=== PATIENT | female | born 1985 | race Caucasian/White ===

== ENCOUNTER 2025-08-16 08:27 | Outpatient (REF) | payer OTHER, SELFPAY ==
--- OUTSIDE RECORDS SUMMARY | 2024-07-14 07:46 | XMS_ITS | Encounter Summary ---
Author Organization [facility] Address [address] [place] [address] Care Team Providers Care Sap Treasury Consultant Name Role Phone Cosme Love MD Primary Care Provider [phone] Encounter Details Date Type Department Care Team (Late st Contact Info) Description 07/14/2024 8:46 AM EDT Hospital Encounter TH HISTORIC ENCOUNTERS EASTERN CONVERSION ONLY Social History Tobacco Use Types Packs/Day Years Used Date Smoking Tobacco: Never Alcohol Use Standard Drinks/Week Comments Not Currently 0 (1 standard drink = 0.6 oz pur e alcohol) Very rare Comments No Sex and Gender Information Value Date Recorded Sex Assigned at Female 10/20/2024 9:19 AM EST Legal Sex Female 12:31 PM EST Gender Identity Female 10/20/2024 9:19 AM EST Sexual Orientation Straight 02/02/2025 10 :04 AM EDT documented as of this encounter Last Filed Vital Signs Vital Sign Reading Time Taken Comments Blood Pressure - - Pulse - - Temperature - - Respiratory Rate - - Oxygen Saturation - - Inhaled Oxygen Concentration - - Weight 50.6 kg (111 lb 8.8 oz) 07/07/2024 9:01 A M EDT Height 160 cm (5' 3 ) 07/07/2024 9:01 AM EDT Body Mass Index 19.76 07/07/2024 9:01 AM EDT documented in this encounter Progress Notes * Historical, Notes Results - 07/14/2024 9:00 AM EDT Patient arrives ambulatory for port draw to recheck LFT's. Patient's port accessed without difficulty. + blood return. Labs drawn and sent to lab. Patient's port flushed and deaccessed per protocol. Patient has her next appointments in place. Patient stable upon discharge. * Historical, Notes Results - 07/14/2024 9:00 AM EDT Patient's labs reviewed with Dr. Forrester, LFT's still elevated but slightly improved. Per Dr. Forrester recheck again in 2 weeks on treatment day, patient to avoid tylenol, flu medications, and antibiotics. Patient called and updated with results and recommendation from Dr. Forrester. Patient verbalized understanding. documented in this encounter Plan of Treatment Upcoming Encounters Date Type Department Care Team (Late st Contact Info) Description 08/22/2025 9:30 AM EST Appointment [facility] Infusion Center [address] [place] [phone] 12/19/2025 3:00 PM EDT [facility] [address] [place] [address] Cosme Love MD [address] [place] [address] documented as of this encounter Visit Diagnoses Not on filedocumented in this encounter Care Teams Sap Treasury Consultant Relationship Specialty Start Date End Date Cosme Love MD [address] [place] [address] PCP - General Internal Medicine 06/03/22 documented as of this encounter
--- OUTSIDE RECORDS SUMMARY | 2024-07-27 23:00 | XMS_ITS | Encounter Summary ---
Author Organization [facility] Address [address] [place] [address] Care Team Providers Care Production Drilling Machine Operator Name Role Phone Comse Love MD Primary Care Provider [phone] Encounter Details Date Type Department Care Team (Late Contact Info) Description 07/28/2024 Hospital Encounter TH HISTORIC ENCOUNTERS EASTERN CONVERSION [...] - Inhaled Oxygen Concentration - - Weight 52.1 kg (114 lb 12.8 oz) 07/28/2024 9:58 AM EDT Height 160 cm (5' 3 ) 07/28/2024 9:12 AM EDT Body Mass Index 20.34 07/28/2024 9:12 AM EDT documented in this encounter Plan of Treatment Upcoming Encounters Date Type Department Care Team (Late Contact Info) Description 08/22/2025 9:30 AM EST Appointment [facility] [address] [place] [phone] 12/19/2025 3:00 PM EDT Office Visit Internal Medicine - [facility] [address] [facility] [place] [address] Cosme Love MD [address] [facility] [place] [address] documented as of this encounter Visit Diagnoses Not on filedocumented in this encounter Care Teams Production Drilling Machine Operator Relationship Specialty Start Date End Date Cosme Love MD [address] [facility] [place] [address] PCP - General Internal Medicine 06/03/22 documented as of this encounter
--- OUTSIDE RECORDS SUMMARY | 2024-07-28 08:54 | XMS_ITS | Encounter Summary ---
Author Organization [facility] Address [address] [place] [address] Care Team Providers Care Transition Advisor Name Role Phone Cosme Love MD Primary Care Provider [phone] Encounter Details Date Type Department Care Team (Late st Contact Info) Description 07/28/2024 9:54 AM EDT Hospital Encounter TH HISTORIC ENCOUNTERS [...] 52.1 kg (114 lb 12.8 oz) 07/28/2024 9:12 AM EDT Height 160 cm (5' 3 ) 07/28/2024 9:12 AM EDT Body Mass Index 20.34 07/28/2024 9:12 AM EDT documented in this encounter Progress Notes * Historical, Notes Results - 07/28/2024 9:30 AM EDT Images from the original note were not included. Progress Notes by Khloe Hancock RN at 07/28/2024 9:30 AM Author: Khloe Hancock RN Service: -- Author Type: Registered Nurse Filed: 07/28/2024 5:33 PM Encounter Date: 07/28/2024 Status: Signed Emergency Medicine Physician: Khloe Hancock RN (Registered Nurse) Pt arrives today for D1C5 treatment. Pt reports feeling well overall. Added on labs resulted and within normal range. Medications, allergies, labs, and assessment reviewed. Medication released to pharmacy. Order received to recheck cmp - no need to wait for results per dr cali 1050 Traz[address] infusing. Pt tolerating well. Pt coloring. Call perez in reach. 1125 infusion complete. Pt tolerated well. Appointments in place for next treatment. Stable at discharge. documented in this encounter Plan of Treatment Upcoming Encounters Date Type Department Care Team (Late st Contact Info) Description 08/22/2025 9:30 AM EST Appointment [facility] Infusion Center [address] [address] 12/19/2025 3:00 PM EDT [facility] [address] [place] [address] Cosme Love MD [address] [place] [address] documented as of this encounter Visit Diagnoses Not on filedocumented in this encounter Care Teams Transition Advisor Relationship Specialty Start Date End Date Cosme Love MD [address] [place] [address] PCP - General Internal Medicine 06/03/22 documented as of this encounter
--- NOTE | ~2025-08-16 | XR_ITS ---
EXAMINATION: XR KNEE, RIGHT CLINICAL INFORMATION: M25.569 - Pain in unspecified knee COMPARISON: None available. TECHNIQUE: AP bilateral knees one view. Right knee 2 views. FINDINGS: Right knee: No visible acute fracture or dislocation. No suspicious bony lesion. No significant joint space narrowing. Abnormal soft tissue calcification. Left knee: Single frontal radiograph. No acute fracture. There is calcification/ossification in the soft tissues lateral to the femoral diaphysis, larger focus measuring 3.8 cm craniocaudal, incompletely evaluated. This is of uncertain etiology, differential consideration includes dystrophic/heterotopic ossification versus other etiologies.. XR/XR knee RT 3V IMPRESSION: Right knee: No acute osseous findings Left knee: Single frontal radiograph. Calcifications/ossifications lateral to the femoral diaphysis, indeterminate. Clinically correlate. Correlate with prior imaging. Dedicated radiographs for further evaluation as clinically indicated. Electronically signed by: Teodoro Seo MD 08/16/2025 04:34 PM EST
--- OUTSIDE RECORDS SUMMARY | 2025-08-17 08:57 | XMS_ITS | Clinical Summary ---
Author Organization [facility] Address [address] [facility] [address] [place] [address] Phone Care Team Providers Care Manager Balance Name Role Phone Self-Referred, Patient Unavailable Unavailab Cosme Moreno MD Primary Care Provider [phone] Janette Abdalla MD, MPH Unavailable [phone] Zoe Putnam Unavailable [phone] Dariana Hopper [facility] Unavailable [phone] Aura Hsu RN Unavailable [email or web address] Medications loperamide (IMODIUM) 2 mg capsule [...] Description 07/31/2025 Orders Only Infusion Therapy Services [facility] at [address] [address] Janette Abdalla MD, MPH Malignant neoplasm of overlapping sites of left breast in female, estrogen receptor positive (Primary Dx) 07/27/2025 2:00 PM EDT Infusion Infusion Therapy Services [facility] at [address] [address] Janette Abdalla MD, MPH Aura Hsu RN Malignant neoplasm of overlapping sites of left breast in female, estrogen receptor positive (Primary Dx) 07/27/2025 1:00 PM EDT Office Visit [facility], [facility], [facility] at [address] [phone] Nini Herrera CNP Schlam Camhi, Ilana M, MD, MPH Examination prior to chemotherapy (Primary Dx); Malignant neoplasm of female breast, unspecified estrogen receptor status, unspecified laterality, unspecified site of breast 07/27/2025 9:23 AM EDT - 07/27/2025 11:59 PM EDT Hospital Encounter [facility] [address] [facility] [address] [place] [address] Nini Herrera CNP Discharge Disposition: Home or Self Care 07/27/2025 Documentation [facility], [facility] at [address] [address] Maranda Torres RN 07/12/2025 Orders Only [facility], [facility], [facility] at [address] [address] Nini Herrera CNP Examination prior to chemotherapy (Primary Dx) 07/12/2025 Orders Only [facility], [facility], [address] [address] Nini Herrera CNP 07/10/2025 Refill [facility], [facility], [facility] Cancer [address], [address] [place] [address] Vijaya Dominique DNP Med Change Request 07/09/2025 Orders Only [facility], [facility], [address] [address] Nini Herrera CNP Examination prior to chemotherapy (Primary Dx) 07/06/2025 12:30 PM EDT Infusion Infusion Therapy Services [facility], [facility] at [address] [address] Janette Abdalla MD, MPH Nivia Adames, RN Malignant neoplasm of overlapping sites of left breast in female, estrogen receptor positive (Primary Dx) 07/06/2025 11:30 AM EDT Office Visit [facility], [facility], [facility] at [address] [address] Nini Herrera, MARLEE Malignant neoplasm of female breast, unspecified estrogen receptor status, unspecified laterality, unspecified site of breast (Primary Dx) 07/05/2025 Orders Only [facility], [facility], [facility] [address] [facility], [address] [place] [address] Janette Abdalla MD, MPH Malignant neoplasm of female breast, unspecified estrogen receptor status, unspecified laterality, unspecified site of breast (Primary Dx) 06/26/2025 Orders Only [facility], [facility], [facility] [address] [facility], [address] [place] [address] Janette Abdalla MD, MPH Malignant neoplasm of overlapping sites of left breast in female, estrogen receptor positive (Primary Dx); Examination prior to chemotherapy 06/25/2025 Social Work Social Work Department, [facility] at [address] [address] Dariana Hopper, SENIOR QUALITY METHODS SPECIALIST 06/25/2025 Orders Only [facility], [facility], [facility] [address] [facility], [address] [place] [address] Mary Villagran, DEWAYNE Malignant neoplasm of overlapping sites of left breast in female, estrogen receptor positive (Primary Dx) 06/21/2025 Orders Only [place] [facility], [facility], [facility] at [address] [address] Janette Abdalla MD, MPH Malignant neoplasm of overlapping sites of left breast in female, estrogen receptor positive (Primary Dx) 06/21/2025 Telephone [facility], [facility], [address], [address] [place] [address] Janette Abdalla MD, MPH 06/21/2025 Telephone [facility], [facility] Women[facility]ancers, [facility] [address] [facility], [address] [place] [address] Olivia Alcaraz, RN Symptom Management 06/18/2025 Orders Only [facility], [facility] Women[facility] Cancers, [facility] [address] [facility], [address] [place] [address] Vijaya Dominique DNP 06/18/2025 Telephone [facility], [facility], [address], [address] [place] [address] Alyce Sutherland RN 06/15/2025 12:00 PM EDT Infusion Infusion Therapy Services [facility] at [address] [address] Janette Abdalla MD, MPH Aura Hsu RN Malignant neoplasm of overlapping sites of left breast in female, estrogen receptor positive (Primary Dx) 06/15/2025 11:00 AM EDT Office Visit [facility], [facility], [facility] at [address] [address] Janette Abdalla MD, MPH Nini Herrera, BEAM MACHINE OPERATOR Examination prior to chemotherapy (Primary Dx); Malignant neoplasm of overlapping sites of left breast in female, estrogen receptor positive 06/15/2025 Procedure Pass [facility] [address] [facility] [address] [place] [address] 06/09/2025 Orders Only [facility], [facility], [facility] [address] [facility], 9th [place] [address] Janette Abdalla MD, MPH Malignant neoplasm of overlapping sites of left breast in female, estrogen receptor positive (Primary Dx) 06/07/2025 Documentation [facility], [facility], [facility] [address] [facility], [address] [place] [address] [address] A[address] 06/07/2025 Orders Only [facility], [facility], [facility] [place] [address] 4th [place] [address] Nini Herrera CNP 06/07/2025 Telephone [facility], [facility], [facility] [address] [facility], [address] [place] [address] Rose Vines RN Chemo Teaching 06/05/2025 1:00 PM EDT Office Visit [facility], [facility], [facility] [address] [facility], 9th [place] [address] Janette Abdalla MD, MPH Malignant neoplasm of overlapping sites of left breast in female, estrogen receptor positive (Primary Dx) 06/05/2025 Documentation [facility], [facility], [facility] [address] [facility], [address]th [place] [address] Janette Abdalla MD, MPH 06/05/2025 Telephone [facility], [facility], [facility] [address] [facility], [address] [place] [address] Alyce Sutherland RN 06/04/2025 Documentation [facility], [facility], [facility] [address] [facility], [address] [place] [address] [address] Avalos 05/28/2025 Ancillary Orders DF IMG OUTSIDE IMG [address] [place] [address] Janette Abdalla MD, MPH 05/28/2025 Ancillary Orders DF IMG OUTSIDE IMG [address] [place] [address] Janette Abdalla MD, MPH 05/28/2025 Ancillary Orders DF IMG OUTSIDE IMG [address] [place] [address] Janette Abdalla MD, MPH 05/28/2025 Ancillary Orders DF IMG OUTSIDE IMG [address] [place] [address] Janette Abdalla MD, MPH 05/28/2025 Ancillary Orders DF IMG OUTSIDE IMG [address] [place] [address] Janette Abdalla MD, MPH 05/28/2025 Ancillary Orders [facility] IMG OUTSIDE IMG [address] [place] [address] Janette Abdlala MD, MPH 05/28/2025 Ancillary Orders DF IMG OUTSIDE IMG [address] [place] [address] Janette Abdalla MD, MPH 05/28/2025 Ancillary Orders DF IMG OUTSIDE IMG [address] [place] [address] Janette Abdalla MD, MPH 05/28/2025 Ancillary Orders DF IMG OUTSIDE IMG [address] [place] [address] Janette Abdalla MD, MPH 05/28/2025 Ancillary Orders DF IMG OUTSIDE IMG [address] [place] [address] Janette Abdalla MD, MPH 05/28/2025 Ancillary Orders DF IMG OUTSIDE IMG [address] [place] [address] Janette Abdalla MD, MPH 05/28/2025 Ancillary Orders DF IMG OUTSIDE IMG [address] [place] [address] Janette Abdalla MD, MPH 05/28/2025 Ancillary Orders DF IMG OUTSIDE IMG [address] [place] [address] Janette Abdalla MD, MPH 05/28/2025 Ancillary Orders DF IMG OUTSIDE IMG [address] [place] [address] Janette Abdalla MD, MPH 05/28/2025 Ancillary Orders DF IMG OUTSIDE IMG [address] [place] [address] Janette Abdalla MD, MPH 05/28/2025 Ancillary Orders DF IMG OUTSIDE IMG [address] [place] [address] Janette Abdalla MD, MPH 05/28/2025 Ancillary Orders DF IMG OUTSIDE IMG [address] [place] [address] Janette Abdalla MD, MPH 05/28/2025 Ancillary Orders DF IMG OUTSIDE IMG [address] [place] [address] Janette Abdalla MD, MPH 05/28/2025 Ancillary Orders DF IMG OUTSIDE IMG [address] [place] [address] Janette Abdalla MD, MPH 05/28/2025 Ancillary Orders DF IMG OUTSIDE IMG [address] [place] [address] Janette Abdalla MD, MPH 05/25/2025 9:22 AM EDT - 05/25/2025 11:59 PM EDT Hospital Encounter [facility], [facility] [address] [place] [address] Discharge Disposition: Home or Self Care 05/22/2025 Ancillary Procedure DF IMG OUTSIDE IMG [address] [place] [address] Janette Abdalla MD, MPH 05/22/2025 Orders Only [facility], [facility] [place] [facility], [facility] [place] [address] [facility], [address] [place] [address] Jeanne Romero [place] Malignant neoplasm of female [...] high school, GED, job training, learning the Malay language, technical skills, or developing parenting skills)? [...] 10:10 AM EST Blood Draw Laboratory Services, [facility] at [address] [address] Janette Abdalla MD, MPH [address] [place] [address] [email or web address] 08/17/2025 11:00 AM EST Office Visit [facility], [facility] [place] [facility], [facility] at [address] [address] Nini Herrera CNP [address] [place] [address] [email or web address] 08/17/2025 12:00 PM EST Infusion Infusion Therapy Services South, [facility] at [address] [address] Janette Abdalla MD, MPH [address] [place] [address] [email or web address] Aura Hsu, RN [address] [place] [address] [email or web address] 09/05/2025 10:10 AM EST Blood Draw Laboratory Services, [address] [place] [address] Janette Abdalla MD, MPH [address] [place] [address] [email or web address] 09/05/2025 11:00 AM EST Office Visit [facility], [facility], [address], [address] [place] [address] Janette Abdalla MD, MPH [address] [place] [address] [email or web address] 09/05/2025 1:00 PM EST Infusion Infusion Therapy Services [address], [address] [place] [address] Janette Abdalla MD, MPH [address] [place] [address] [email or web address] Marianne Smith RN [address] [place] [address] [email or web address] 09/07/2025 11:00 AM EST Infusion Infusion Therapy Services [facility] [place] [address] [address] Janette Abdalla MD, MPH [address] [place] [address] [email or web address] Aura Hsu RN [address] [place] [address] [email or web address] Health Maintenance Due Date Last Done [...] on patient's age to complete this topic IPV VACCINES Aged Out No longer eligi ble [...] of3 resultswithin the time period is included. [facility] SODIUM 137 136 - 145 mmol/L [facility] POTASSIUM 4.6 3.4 - 5.1 mmol/L [facility] CHLORIDE 104 98 - 107 mmol/L [facility] CO2 23 22 - 31 mmol/L [facility] BUN 10 6 - 23 mg/dL [facility] CREATININE 0.81 0.50 - 1.20 mg/dL [facility] GLUCOSE 121(H) 70 - 100 mg/dL [facility] ALBUMIN 3.9 3.5 - 5.2 g/dL [facility] TOTAL PROTEIN 6.9 6.4 - 8.3 g/dL [facility] CALCIUM 8.9 8.8 - 10.7 mg/dL [facility] ALKALINE PHOSPHATASE 110(H) 35 - 104 U/L [facility] TOTAL BILIRUBIN 0.5 0.2 - 1.2 mg/dL [facility] AST 16 <33 U/L [facility] ALT 13 <34 U/L [facility] GLOBULIN 3.0 2.3 - 4.2 g/dL [facility] EGFR 93 >59 mL/min/1.7 3m2 [facility] Comment:Estimated glomerular filtration rate calculated using the CKD-EPI refit equation. ANION GAP 10 7 - 17 mmol/L [facility] Blood 07/27/2025 11:4 1 AM EDT 07/27/2025 11:42 AM EDT us Janette Ortiz MD, MPH LAB BLOOD BKR ORDER BERTRAM Final Result [facility] [address] [place] [address], [facility] * CA-15-3 (07/27/2025 11:41 AM EDT) Only the most recent of2 resultswithin the time period is included. CANCER AG 15-3 19 0 - 25 U/mL [facility] Blood 07/27/2025 11:4 1 AM EDT 07/27/2025 11:42 AM EDT us Janette Ortiz MD, MPH LAB BLOOD BKR ORDER BERTRAM Final Result [facility] [address] [place] [address], [facility] * (ABNORMAL) CBC and differential (07/27/2025 11:41 AM EDT) Only the most recent of3 resultswithin the time period is included. WBC 4.82 4.00 - 10.00 K/uL [facility] RBC 4.30 3.90 - 6.00 M/uL [facility] HGB 13.2 11.5 - 16.4 g/dL [facility] HCT 36.5 36.0 - 48.0 % [facility] PLT 226 150 - 450 K/uL [facility] MCV 84.9 80.0 - 100.0 fL [facility] MCH 30.7 27.0 - 32.0 pg [facility] MCHC 36.2(H) 32.0 - 36.0 g/dL [facility] RDW 14.1 11.5 - 14.5 % [facility] MPV 9.4 8.4 - 12.0 fL [facility] NRBC 0.00 0.00 /100 WBCs [facility] ABSOLUTE NRBC 0.00 0 K/uL [facility] DIFF METHOD Auto [facility] NEUTS 43.4(L) 48.0 - 76.0 % [facility] LYMPHS 46.3(H) 18.0 - 41.0 % [facility] MONOS 5.8 4.0 - 11.0 % [facility] EOS 3.3 0.0 - 5.0 % [facility] BASOS 1.0 0.00 - 1.50 % [facility] % IMMATURE GRANS 0.2 0.00 - 1.00 % [facility] ABSOLUTE NEUTS 2.09 1.92 - 7.60 K/uL [facility] ABSOLUTE LYMPHS 2.23 0.72 - 4.10 K/uL [facility] ABSOLUTE MONOS 0.28 0.16 - 1.10 K/uL [facility] ABSOLUTE EOS 0.16 0.00 - 0.50 K/uL [facility] ABSOLUTE BASOS 0.05 0.00 - 0.15 K/uL [facility] ABS IMMATURE GRANS 0.01 0.00 - 0.10 K/uL [facility] Blood 07/27/2025 11:4 1 AM EDT 07/27/2025 11:42 AM EDT Janette Ortiz MD, MPH LAB BLOOD BKR ORDER BERTRAM Final Result Performing Organization Address City/[facility] Co de Phone Number [facility] [address] * Carcinoembryonic antigen (CEA) (07/27/2025 11:41 AM EDT) Only the most recent of2 resultswithin the time period is included. CEA 1.3 0 - 3.7 ng/mL [facility] Comment: CEA REFERENCE RANGE: NON-SMOKERS: < 3.8 ng/mL SMOKERS: < 5.0 ng/mL Blood 07/27/2025 11:4 1 AM EDT 07/27/2025 11:42 AM EDT Janette Ortiz MD, MPH LAB BLOOD BKR ORDER BERTRAM Final Result Performing Organization Address City/[facility] Co de Phone Number [facility] [address] [place] [address], [facility] * CT CHEST (HIGH RESOLUTION) WITHOUT CONTRAST [...] provided indication for this examination in Epic: * Acute interstitial pneumonitis; on enhertu, rule [...] prone images were obtained [facility]. COMPARISON: CT CHEST OUTSIDE [...] known primary malignancy and asmita metastasis. ATTESTATION: IWade, as teaching physician have reviewed theimages, if any, for this patient's exam, and if necessary, have edited thereport originally created by Duran Ramirez. Nini Herrera [facility] CT CHEST Final Result * Miscellaneous test (07/06/2025 10:19 AM EDT) [facility] Test Information TEST SENT TO [facility] 07/06/2025 [facility] MISCELLANEOUS TEST (RESULTS) TEST CANCELLED BY PROVIDER DR. MARCELLO AUSTIN ON 07/06/2025 [facility] Resulting Agency [facility] Blood 07/06/2025 10:1 9 AM EDT 07/06/2025 11:50 AM EDT Janette Ortiz MD, MPH LAB BLOOD BKR ORDER BERTRAM Final Result Performing Organization Address City/[facility] Co de Phone Number [address] * Ferritin (07/06/2025 10:19 AM EDT) FERRITIN 113 13 - 150 ug/L [facility] Blood 07/06/2025 10:1 9 AM EDT 07/06/2025 10:31 AM EDT Janette Ortiz MD, MPH LAB BLOOD BKR ORDER BERTRAM Final Result Performing Organization Address [facility] Co de Phone Number [address] * (ABNORMAL) Iron and iron binding capacity (07/06/2025 10:09 AM EDT) IRON 60 37 - 145 ug/dL [facility] IRON BINDING CAPACITY 183(L) 220 - 460 ug/dL [facility] TRANSFERRIN SATURAT. 33 14 - 50 % [facility] 07/06/2025 10:0 9 AM EDT 07/06/2025 10:32 AM EDT Janette Ortiz MD, MPH LAB BLOOD BKR ORDER BERTRAM Final Result Performing Organization Address [facility] Co de Phone Number [address] * MRI Brain Outside (No Interpretation) (05/22/2025 12:00 AM EDT) Other Narrative BESSY_RODRIGO - 05/28/2025 11:44 AM EDT This study is for PACS storage only and not for interpretation. Janette Ortiz MD, MPH IMG OUTSIDE IMAGING W/OUT INTERPRETATION Final Result Performing Organization Address City/[facility] Co de Phone Number [email or web address] * Mammogram Outside (No Interpretation) (12/01/2023 12:10 AM EST) Other Narrative TAD - 05/28/2025 11:59 AM EDT This study is for PACS storage only and not for interpretation. us Janette Ortiz MD, MPH IMG OUTSIDE IMAGING W/OUT INTERPRETATION Final Result Performing Organization Address [facility] Co de Phone Number [email or web address] from Last 3 Months or Most Recently Relevant to Health Maintenance Insurance [employer] [facility] [employer] [facility] [employer] [facility] [employer] [facility] [place] Care Teams Manager Balance Relationship Specialty Start Date End Date Cosme Love MD [address] [place] [address] PCP - General Internal Medicine 05/15/25 Self-Referred, Patient 05/15/25 Janette Abdalla MD, MPH [address] [place] [address] [facility] [place] [facility] [address] [place] [address] [email or web address] Medical Oncology 05/21/25 Zoe Putnam [address] [place] [address] [email or web address] Contracting Executive 06/07/25 Dariana Hopper LICSW [address] [place] [address] [email or web address] Level Vial Marker Oncology 06/19/25 Aura Hsu, RN [address] [place] [address] [email or web address] Primary Infusion Nurse 06/15/25 Additional Source Comments The information contained in this document represents components of the legal health record. It is not the complete legal health record.[facility]
--- OUTSIDE RECORDS SUMMARY | 2025-08-17 08:57 | XMS_ITS | Encounter Summary ---
Author Organization [facility] Address [address] [place] [address] Care Team Providers Care Car Construction Superintendent Name Role Phone Cosme Love MD Primary Care Provider [phone] Encounter Details Date Type Department Care Team Description 04/21/[address] [facility] Oncology Services [address] [place] [address] Breanne Solo [facility] Social History Tobacco Use Types Packs/Day Years [...] on filedocumented in this encounter Care Teams Car Construction Superintendent Relationship Specialty Start Date End Date Cosme Love MD [facility] [place] [address] PCP - General Internal Medicine 06/03/22 documented as of this encounter
--- OUTSIDE RECORDS SUMMARY | 2025-08-17 08:57 | XMS_ITS ---
Author Organization [facility] Address [address] [place] [address] Phone Care Team Providers Care Commercial Kitchen Service Technician Name Role Phone Cosme Love MD Primary Care Provider [phone] Active Problems Problem Noted Date Diagnosed Date Recurrent major depressive d isorder, in full remission ([facility] V24) 06/21/2025 Anxiety 06/21/2025 Malignant neoplasm of overla pping sites of left breast in female, estrogen receptor positive ([facility] V24, [facility] V28) 09/28/2024 B12 deficiency anemia 06/23/2024 HENRRY (iron deficiency anemia) 06/23/2024 ADHD 06/23/2024 Metastasis to bone ([facility] V24, [facility] V28) Mass overlapping multiple quadrants of left don st 11/29/2023 Pernicious anemia 05/01/2022 Current Treatment and Therapy Plans CYANOCOBALAMIN ( VITAMIN B-12 ) INJECTIONS ( MONTHLY MAINTENANCE )* Plan Start Date:06/28/2025 Plan Provider:Gustavo Forrester MD Linked Problems Malignant neoplasm of overla pping sites of left breast in female, estrogen receptor positive ([facility] V24, [facility] V28)Metastasis to bone ([facility] V24, [facility] V28)Anemia due to vitamin B12 deficiency, unspecified B12 deficiency type Treatment Medications No medications scheduled. HYDRATION AND ELECTROLYTES* Plan Start Date:06/28/2025 Plan Provider:Gustavo Forrester MD Linked Problems Malignant neoplasm of overla pping sites of left breast in female, estrogen receptor positive (CMS/HCC V24, CMS/HCC V28)Metastasis to bone (CMS/HCC V24, CMS/HCC V28) Treatment Medications No medications scheduled. 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
--- OUTSIDE RECORDS SUMMARY | 2025-08-17 08:57 | XMS_ITS | Encounter Summary ---
Author Organization [facility] Address [address] [place] [address] Care Team Providers Care Dog Groomer Name Role Phone Cosme Love MD Primary Care Provider [phone] Encounter Details Date Type Department Care Team Description 01/13/2024 Social Work [facility] On[facility] Services [address] [place] [address] Breanne Solo [facility] Social History Tobacco Use Types Packs/Day Years [...] on filedocumented in this encounter Care Teams Dog Groomer Relationship Specialty Start Date End Date Cosme Love MD [facility] [place] [address] PCP - General Internal Medicine 06/03/22 documented as of this encounter
--- OUTSIDE RECORDS SUMMARY | 2025-08-17 08:57 | XMS_ITS | Clinical Summary ---
Author Organization [facility] Address [address] [place] [address] Care Team Providers Care Wheel Truer Name Role Phone Cosme Love MD Primary Care Provider [phone] Allergies Active Allergy Reactions Criticality Noted Date [...] age to complete this topic Care Teams Wheel Truer Relationship Specialty Start Date End Date Cosme Love MD [address] [place] [address] PCP - General Internal Medicine 06/03/22
--- OUTSIDE RECORDS SUMMARY | 2025-08-17 08:57 | XMS_ITS | Encounter Summary ---
Author Organization [facility] Address [address] [place] [address] Phone Care Team Providers Care Supervisor Diagnostic Name Role Phone Self-Referred, Patient Unavailable Unavailab Cosme Moreno MD Primary Care Provider [phone] Janette Abdalla MD, MPH Unavailable [phone] Zoe Putnam Unavailable [phone] Dariana Hopper [facility] Unavailable [phone] Aura Hsu RN Unavailable [email or web address] Encounter Details Date Type Department Care Team (Late st Contact Info) Description 06/15/2025 Procedure Pass [facility] [address] [facility] [address] [place] [address] Social History Tobacco Use Types [...] high school, GED, job training, learning the Slovak language, technical skills, or developing parenting skills)? [...] 10:10 AM EST Blood Draw Laboratory Services, [facility] [address] [address] Janette Abdalla MD, MPH [address] [place] [address] [email or web address] 08/17/2025 11:00 AM EST Office Visit [facility], Nida Keyes [facility], [facility] [address] [address] Nini Herrera CNP [address] [place] [address] [email or web address] 08/17/2025 12:00 PM EST Infusion Infusion Therapy Services [facility], [facility] [address] [address] Janette Abdalla MD, MPH [address] [place] [address] [email or web address] Aura Hsu, DEWAYNE [address] [place] [address] [email or web address] 09/05/2025 10:10 AM EST Blood Draw Laboratory Services, [address] [place] [address] Janette Abdalla MD, MPH [address] [place] [address] [email or web address] 09/05/2025 11:00 AM EST Office Visit [facility], [facility], [address] [place] [address] Janette Abdalla MD, MPH [address] [place] [address] [email or web address] 09/05/2025 1:00 PM EST Infusion Infusion Therapy Services [facility] [address] [place] [address] Janette Abdalla MD, MPH [address] [place] [address] [email or web address] Marianne Smith RN [address] [place] [address] [email or web address] 09/07/2025 11:00 AM EST Infusion Infusion Therapy Services [facility] [address] [address] Janette Abdalla MD, MPH [address] [place] [address] [email or web address] Aura Hsu RN [address] [place] [address] [email or web address] documented as of this encounter Visit Diagnoses Not on filedocumented in this encounter Care Teams Supervisor Diagnostic Relationship Specialty Start Date End Date Cosme Love MD [address] [place] [address] PCP - General Internal Medicine 05/15/25 Self-Referred, Patient 05/15/25 Janette Abdalla MD, MPH [address] [place] [address] [facility] [place] [address] [place] [address] [email or web address] Medical [email or web address] 05/21/25 Zoe Putnam [address] [place] [address] [email or web address] Journeyman Power Plant Operator 06/07/25 Dariana Hopper LICSW [address] [place] [address] [email or web address] Italian Tutor Oncology 06/19/25 Aura Hsu, RN [address] [place] [address] [email or web address] Primary Infusion Nurse 06/15/25 documented as of this encounter Additional Source Comments The information contained in this document represents components of the legal health record. It is not the complete legal health record.[facility]
--- OUTSIDE RECORDS SUMMARY | 2025-08-17 08:57 | XMS_ITS | Encounter Summary ---
Author Organization [facility] Address [address] [place] [address] Care Team Providers Care Store Merchandiser Name Role Phone Cosme Love MD Primary Care Provider [phone] Encounter Details Date Type Department Care Team Description 07/28/2024 Social Work [facility] Oncology Services [address] [place] [address] Breanne Solo [facility] Social History Tobacco Use Types Packs/Day Years [...] on filedocumented in this encounter Care Teams Store Merchandiser Relationship Specialty Start Date End Date Cosme Love MD [facility] [place] [address] PCP - General Internal Medicine 06/03/22 documented as of this encounter
--- OUTSIDE RECORDS SUMMARY | 2025-08-17 08:57 | XMS_ITS | Encounter Summary ---
Author Organization [facility] Address [address] [place] [address] Care Team Providers Care Warehouse Shipping Receiving Clerk Name Role Phone Cosme Love MD Primary Care Provider Encounter Details Date Type Department Care Team (Late Contact Info) Description 05/23/2025 Lab Requisition [facility] - Main Lab [address] [place] [phone] More Pack MD [address] [place] [address] Intraductal carcinoma in situ of left breast Social History Tobacco Use Types Packs/Day Years [...] Info) Description 08/22/2025 9:30 AM EST Appointment [facility] [address] [phone] 12/19/2025 3:00 PM EDT Office Visit Internal Medicine - [place] [address] [place] [address] Cosme Love MD [address] [place] [address] Pending Results Name Type Priority Associated Diagnoses Date/Time Historical Pathology Case Pathology and Cytology Routine Intraductal carcinoma in situ of left breast 05/23/2025 12:02 PM EDT documented as of this encounter Visit Diagnoses Diagnosis Intraductal carcinoma in situ of left breast documented in this encounter Additional Health Concerns Assessment Noted Time PHQ-9 Depression Total Score: 0 09/28/20 11:00 AM EST documented as of this encounter Care Teams Warehouse Shipping Receiving Clerk Relationship Specialty Start Date End Date Cosme Love MD [address] [place] [address] PCP - General Internal Medicine 06/03/22 documented as of this encounter
--- OUTSIDE RECORDS SUMMARY | 2025-08-17 08:57 | XMS_ITS ---
Author Organization [facility] Address [address] [place] [address] Care Team Providers Care Checkroom Attendant Name Role Phone Cosme Love MD Primary Care Provider Active Problems Problem Noted Date Diagnosed Date Malignant neoplasm of overla pping sites of left breast in female, estrogen receptor positive 12/15/2023 Metastasis to bone 12/15/2023 Mass overlapping multiple quadrants of left don st 11/29/2023 Pernicious anemia 05/01/2022 Iron deficiency anemia due to chronic blood loss 05/01/2022 Current Oncology Plans [facility] BCN OP TRASTUZUMAB, [id number], X1 YEAR (1.5/1 HR)* Plan Start Date:05/04/2024 [...] treatments are documented for this patient in [facility]. Treatments may have been administered in another system.
--- OUTSIDE RECORDS SUMMARY | 2025-08-17 08:57 | XMS_ITS | Clinical Summary ---
Author Organization [facility] Address [address] [place] [address] Phone Care Team Providers Care Medium Cycle Salesperson Name Role Phone Cosme Love MD Primary Care Provider [phone] Allergies Active Allergy Reactions Criticality Noted Date Comments Gluten 05/01/2022 Pertuzumab Rash High 10/17/2024 Wheat Bran 05/01/2022 Medications ferrous sulfate, dried 160 mg (50 mg iron) tablet extended release Take 1 tablet by mouth 1 (one) time each day. 4 Active lidocaine-prilo mitul (EMLA) 2.5-2.5 % cream Apply topically. 4 Active ondansetron (ZOFRAN) 8 mg tablet Take 1 tablet (8 mg total) by mouth every 8 (eight) hours if needed for nausea. 4 Active cyanocobalamin, vitamin B-12, 1,000 mcg tablet, sublingual Place 1,000 mcg under the tongue 1 (one) time each day. 90 tablet 1 5 Active biotin/keratin (BIOTIN PLUS KERATIN ORAL) Take by mouth. Active hydrOXYzine HCL (ATARAX) 25 mg tablet TAKE 1 TABLET (25 MG TOTAL) BY MOUTH EVERY 8 HOURS NEEDED FOR ANXIETY 270 tablet 1 5 Active loperamide (IMODIUM) 2 mg capsule Take 1 capsule (2 mg total) by mouth 4 times daily as needed. 5 Active baclofen (LIORESAL) 10 mg tablet Take 1 tablet (10 mg total) by mouth 2 times daily as needed. 5 Active prochlorperazin e (COMPAZINE) 10 mg tablet Take 1 tablet (10 mg total) by mouth every 6 (six) hours if needed. for nausea 5 Active sertraline (ZOLOFT) 50 mg tablet Take 1 tablet (50 mg total) by mouth 1 (one) time each day. 90 tablet 1 5 Active amphetamine-dex troamphetamine XR (Adderall XR) 20 mg 24 hr capsule Take 1 capsule (20 mg total) by mouth 1 (one) time each day in the morning. Do not crush or chew. Max Daily Amount: 20 mg 28 capsule 5 Active ibuprofen (ADVIL,MOTRIN) 600 mg tablet Take 1 tablet (600 mg total) by mouth every 8 hours as needed. 5 07/18/20 25 amphetamine-dex troamphetamine XR (Adderall XR) 20 mg 24 hr capsule Take 1 capsule (20 mg total) by mouth 1 (one) time each day in the morning. Do not crush or chew. Max Daily Amount: 20 mg 28 capsule 5 08/12/20 25 Discontinue d(Reorder) Active Problems Problem Noted Date Diagnosed Date Recurrent major depressive d isorder, in full remission ([facility] V24) 06/21/2025 Anxiety 06/21/2025 Malignant neoplasm of overla pping sites of left breast in female, estrogen receptor positive ([facility] V24, [facility] V28) 09/28/2024 B12 deficiency anemia 06/23/2024 HENRRY (iron deficiency anemia) 06/23/2024 ADHD 06/23/2024 Metastasis to bone ([facility] V24, [facility] V28) Mass overlapping multiple quadrants of left don st 11/29/2023 Pernicious anemia 05/01/2022 Resolved Problems Problem Noted Date Diagnosed Date Resolved Date Malignant neoplasm of overla pping sites of left breast in female, estrogen receptor negative ([facility] V24, [facility] V28) 01/19/202409/10 Overview (06/23/2024): contralateral right axillary asmita metastases and bone metastases, ER positive, [place] positive, HER2 positive Encounters Date Type Department Care Team Description 08/10/2025 9:00 AM EDT - 08/10/2025 11:59 PM EDT Hospital Encounter [facility] [address] [place] [phone] Gustavo Forrester MD Metastasis to bone (CMS/HCC V24, CMS/HCC V28) (Primary Dx); Malignant neoplasm of overlapping sites of left breast in female, estrogen receptor positive (CMS/HCC V24, CMS/HCC V28); Anemia due to vitamin B12 deficiency, unspecified B12 deficiency type Discharge Disposition: Home or Self Care 07/31/2025 9:00 AM EDT Ancillary Procedure [facility] - [address] [place] [address] Malignant neoplasm of unspecified site of unspecified female breast (CMS/HCC V24, CMS/HCC V28); Encounter for antineoplastic chemotherapy 07/30/2025 9:00 AM EDT - 07/30/2025 11:59 PM EDT Hospital Encounter [facility] [address] [place] [phone] Gustavo Forrester MD Metastasis to bone (CMS/HCC V24, CMS/HCC V28) (Primary Dx); Malignant neoplasm of overlapping sites of left breast in female, estrogen receptor positive (CMS/HCC V24, CMS/HCC V28) Discharge Disposition: Home or Self Care 07/09/2025 9:00 AM EDT - 07/09/2025 11:59 PM EDT Hospital Encounter [facility] [address] [place] [phone] Metastasis to bone (CMS/HCC V24, CMS/HCC V28) (Primary Dx); Malignant neoplasm of overlapping sites of left breast in female, estrogen receptor positive (CMS/HCC V24, CMS/HCC V28) Discharge Disposition: Home or Self Care 07/09/2025 Social Work [facility] [address] [place] [phone] Breanne Solo LMSW 06/28/2025 8:24 AM EDT - 06/28/2025 11:59 PM EDT Hospital Encounter [facility] [address] [place] [phone] Malignant neoplasm of overlapping sites of left breast in female, estrogen receptor positive ([facility] V24, [facility] V28) (Primary Dx); Metastasis to bone ([facility] V24, [facility] V28); Anemia due to vitamin B12 deficiency, unspecified B12 deficiency type Discharge Disposition: Home or Self Care 06/21/2025 8:30 AM EDT Office Visit Internal Medicine - [facility] [address] [place] [phone] Cosme Love MD Attention deficit hyperactivity disorder (ADHD), combined type (Primary Dx); Recurrent major depressive disorder, in full remission ([facility] V24); Anxiety 05/23/2025 Lab Requisition [facility] - Main Lab [address] [place] [phone] More Pack MD Intraductal carcinoma in situ of left breast 05/22/2025 9:30 AM EDT - 05/22/2025 11:59 PM EDT Hospital Encounter [address] [phone] Malignant neoplasm of overlapping sites of left breast in female, estrogen receptor positive ([facility] V24, [facility] V28) Discharge Disposition: Home or Self Care 05/22/2025 Telephone [facility] [address] [place] [phone] Opal Jose RN 05/22/2025 Telephone [facility] [address] [place] [phone] Opal Jose RN 05/18/2025 8:58 AM EDT - 05/18/2025 11:59 PM EDT Hospital Encounter [facility] [address] [place] [phone] Gustavo Forrester MD Metastasis to bone ([facility] V24, [facility] V28) (Primary Dx) Discharge Disposition: Home or Self Care from Last 3 Months Immunizations Immunization Administration Dates Next Due Influenza trivalent, MDCK, 0 .5mL, preservative free (Flucelvax) 6mo and older 06/21/2025,09/15/2024 Tdap Tetanus diptheria acell ular pertussis (Boostrix; Adacel) 7yo and older 06/21/2025,01/09/2015 Surgical History Surgery Date Site/Laterality Comments OTHER SURGICAL HISTORY PROCEDURE: DENIES PREVIOUS SURGERY Medical History Medical History Date Comments HENRRY (iron deficiency anemia) DX: HENRRY (iron deficiency anemia) B12 deficiency anemia DX:B12 def iciency anemia Adhd DX:ADHD Breast cancer in female ([facility] V24, [facility] V28) 01/2024 DX:Breast cancer in female ( [facility]); COMMENT: with 4 lymph nodes and spot on spine, stage 4 Family History Medical History Relation Name Comments Other: bypass cardiac Father Lung cancer Maternal Grandfather smoking Asthma Mother TIA? Relation Name Status Comments Father Alive Maternal Grandfather Mother Alive Social History Tobacco Use Types Packs/Day Years Used Date Smoking Tobacco: Never Tobacco Cessation:Counseling Given: Not Answered Alcohol Use Standard Drinks/Week Comments Not Currently 0 (1 standard drink = 0.6 oz pur e alcohol) Very rare Comments No Sex and Gender Information Value Date Recorded Sex Assigned at Female 10/20/2024 9:19 AM EST Legal Sex Female 12:31 PM EST Gender Identity Female 10/20/2024 9:19 AM EST Sexual Orientation Straight 02/02/2025 10 :04 AM EDT Obstetrics History Para Term AB IAB SAB Ectopic Multiple Livin g Live Births 1 1 1 Date Outcome GA Total Labor Labor/2nd/3rd Weight Sex Type Anes PTL [place] A1 A5 Name Clin 015 Term F Vag-Sp ont Last Filed Vital Signs Vital Sign Reading Time Taken Comments Blood Pressure 107/79 08/10/2025 9:35 AM EDT Pulse 86 08/10/2025 9:35 AM EDT Temperature 36.8 C (98.3 F) 08/10/2025 9:35 AM EDT Respiratory Rate 20 08/10/2025 9:35 AM EDT Oxygen Saturation 99% 08/10/2025 9:35 AM EDT Inhaled Oxygen Concentration - - Weight 47.6 kg (105 lb) 07/31/2025 9:04 AM EDT Height 160 cm (5' 3 ) 07/31/2025 9:04 AM EDT Body Mass Index 18.6 07/31/2025 9:04 AM EDT Plan of Treatment Upcoming Encounters Date Type Department Care Team (Late st Contact Info) Description 08/22/2025 9:30 AM EST Appointment [facility] [address] [place] [phone] 12/19/2025 3:00 PM EDT Office Visit Internal Medicine - [facility] [address] [place] [phone] Cosme Love MD [address] [place] [address] Health Maintenance Due Date Last Done Comments Hepatitis B Vaccines (1 of 3 - 19+ 3-dose series) 2003 HPV Vaccines (1 - Risk 3-dos e SCDM series) 2011 HIV Screening 09/08/2022 Hepatitis C Screening 09/08/2022 Depression Screening 10/11/2024 09/28/2024 Breast Cancer Screening 12/01/2024 12/01/2023 Social Influencers of Health Screening 01/18/2025 01/19/2024 COVID-19 Vaccine (4 - 2024-2 6 season) 2025 09/19/2021, 01/18/2021, 12/21/2020 Cholesterol Screening (Lipid Panel) 10/31/2025 10/31/2020 Cervical Cancer Screening: Pap Smear 02/28/2027 02/29/2024 Pneumococcal Vaccine: Pediatrics (0 to 5 Years) and At-Risk Patients (6 to 49 Years) (1 of 2 - PCV) 2029 Postponed from 09/2003 (Not clinically appropriate to address at this time) DTaP,Tdap,and Td Vaccines (3 - Td or Tdap) 06/21/2035 06/21/2025, 01/09/2015 RSV Immunization Adult Patients (1 - 1-dose 75+ series) 2059 Influenza Vaccine Completed 06/21/2025, 09/15/2024 HIB Vaccines Aged Out No longer eligi ble based on patient's age to complete this topic Hepatitis A Vaccines Aged Out No long er eligible based on patient's age to complete this topic IPV Vaccines Aged Out No longer eligi ble based on patient's age to complete this topic MMR Vaccines Aged Out No longer eligi ble based on patient's age to complete this topic Meningococcal ACWY Vaccine Aged Out N o longer eligible based on patient's age to complete this topic Meningococcal B Vaccine Aged Out No l onger eligible based on patient's age to complete this topic RSV Immunization Patients Under 20 months Aged Out No longer eligible b ased on patient's age to complete this topic Varicella Vaccines Aged Out No longer eligible based on patient's age to complete this topic Procedures Procedure Name Priority Date/Time Associated Diagnosis Comments TRANSTHORACIC ECHOCARDIOGRAM (TTE) LIMITED Routine 07/31/2025 9:06 AM EDT Malignant neoplasm of unspecified site of unspecified female breast (CMS/HCC V24, CMS/HCC V28) Encounter for antineoplastic chemotherapy MR BRAIN WO AND W CONTRAST Routine 05/22/2025 10:27 AM EDT Malignant neoplasm of overlapping sites of left breast in female, estrogen receptor positive (CMS/HCC V24, CMS/HCC V28) CBC WITH AUTO DIFFERENTIAL STAT 05/18/2025 9:22 AM EDT Metastasis to bone (CMS/HCC V24, CMS/HCC V28) COMPREHENSIVE METABOLIC PANEL STAT 05/18/2025 9:22 AM EDT Metastasis to bone (CMS/HCC V24, CMS/HCC V28) CBC AND DIFFERENTIAL STAT 05/18/2025 9:22 AM EDT Metastasis to bone (CMS/HCC V24, CMS/HCC V28) PAP SMEAR Routine 02/29/2024 LIPID PANEL Routine 10/31/2020 from Last 3 Months or Most Recently Relevant to Health Maintenance Results * TRANSTHORACIC ECHOCARDIOGRAM (TTE) LIMITED (07/31/2025 9:06 AM EDT) BSA 1.45 m2 CV PACS IVC Proximal 1.3 cm CV PACS RV S' 14 cm/s CV PACS TR Peak Velocity 2.36 m/s CV PACS TR Peak Gradient 22 mmHg CV PACS GLS -20.6 % CV PACS Right Ventricular Peak Systolic Pressure 25 mmHg CV PACS Est. RA Pressure 3 mmHg CV PACS Anatomical Region Laterality Modality Ultrasound Narrative 07/31/2025 2:51 PM EDT Systolic function is normal with an ejection fraction of 55-60%. LV global longitudal strain is normal. Global longitudinal strain is -20.6%. There are no regional LV wall motion abnormalities. Right ventricular systolic function is normal. Compared to 03/2025, the LVEF appears similar. Left Ventricle Systolic function is normal with an ejection fraction of 55-60%. LV global longitudal strain is normal. Global longitudinal strain is -20.6%. There are no regional LV wall motion abnormalities. Right Ventricle Systolic function is normal. IVC/SVC RA pressures is estimated to be 3 mmHg (IVC diameter <21 mm and decreases >50% during inspiration). Tricuspid Valve The leaflets exhibit normal excursion. There is mild regurgitation. The RVSP is estimated at 25 mmHg. Pericardium Pericardium appears normal. Study Details Overall the study quality was adequate. Additional technique includes myocardial strain. Nini Herrera CV ECHO PROCEDURES Final Result * MR Brain wo and w Contrast (05/22/2025 10:27 AM EDT) Anatomical Region Laterality Modality Head and Neck Magnetic Resonan ce 05/22/2025 11:3 7 AM EDT Impressions 05/22/2025 12:06 PM EDT No acute intracranial findings. No evidence of metastatic disease. -------- FINAL REPORT -------- Dictated By: Pedrito Valenzuela Dictated Date: 05/22/2025 11:37 ET Assigned Physician: Pedrito Valenzuela Reviewed and Electronically Signed By: Pedrito Valenzuela Signed Date: 05/22/2025 12:06 ET Workstation ID: [id number] Transcribed By: Self Edit Transcribed Date: 05/22/2025 11:37 ET Narrative 05/22/2025 12:06 PM EDT PROCEDURE: Contrast-enhanced MRI of the brain. HISTORY: headache, stage IV breast cancer. TECHNIQUE: Multiplanar multisequence MRI of the brain with and without intravenous contrast. IV CONTRAST DOSE: 11 mL Dotarem from a 15 mL vial with 4 mL discarded. COMPARISON: Head CT 05/04/2024. FINDINGS: BRAIN: No diffusion abnormality. No mass or extra-axial fluid collection. No hydrocephalus. The major intracranial flow voids are preserved. Age commensurate ventricles and sulci. No abnormal enhancement. There are a few nonspecific T2 hyperintensities in the frontal white matter. These are age commensurate finding. ORBITS: Normal. SINUSES/MASTOIDS: Minimal mucosal thickening in the frontal sinuses. Moderate mucosal thickening throughout the ethmoid air cells. Mild mucosal thickening in the left maxillary antrum. Several moderate-sized mucous retention cyst in the right maxillary antrum. CALVARIUM: Normal. OTHER: The visualized skull base soft tissues are normal. Procedure Note Pedrito Valenzuela MD - 05/22/2025 PROCEDURE: Contrast-enhanced MRI of the brain. HISTORY: headache, stage IV breast cancer. TECHNIQUE: Multiplanar multisequence MRI of the brain with and withoutintravenous contrast. IV CONTRAST DOSE: 11 mL Dotarem from a 15 mL vial with 4 mL discarded. COMPARISON: Head CT 05/04/2024. FINDINGS: BRAIN: No diffusion abnormality. No mass or extra-axial fluid collection.No hydrocephalus. The major intracranial flow voids are preserved. Agecommensurate ventricles and sulci. No abnormal enhancement. There are afew nonspecific T2 hyperintensities in the frontal white matter. Theseare age commensurate finding. ORBITS: Normal. SINUSES/MASTOIDS: Minimal mucosal thickening in the frontal sinuses.Moderate mucosal thickening throughout the ethmoid air cells. Mildmucosal thickening in the left maxillary antrum. Several moderate-sizedmucous retention cyst in the right maxillary antrum. CALVARIUM: Normal. OTHER: The visualized skull base soft tissues are normal. IMPRESSION: No acute intracranial findings. No evidence of metastatic disease. -------- FINAL REPORT -------- Dictated By: Pedrito Valenzuela Dictated Date: 05/22/2025 11:37 ET Assigned Physician: Pedrito Valenzuela Reviewed and Electronically Signed By: Pedrito Valenzuela Signed Date: 05/22/2025 12:06 ET Workstation ID: [id number] Transcribed By: Self Edit Transcribed Date: 05/22/2025 11:37 ET Crystal Collins MD IM MRI PROCEDURES Final Result * CBC auto differential (05/18/2025 9:22 AM EDT) WBC 7.1 4.8 - 10.8 K/mcL LAB HEMETOLOGY METHOD 05/18/2025 9:41 AM [facility] RBC 4.20 3.80 - 4.80 M/[facility] LAB HEMETOLOGY METHOD 05/18/2025 9:41 AM [facility] Hemoglobin 12.2 11.5 - 16.0 g/dL LAB HEMETOLOGY METHOD 05/18/2025 9:41 AM [facility] Hematocrit 36.1 35.0 - 47.0 % LAB HEMETOLOGY METHOD 05/18/2025 9:41 AM [facility] MCV 86.2 79.0 - 98.0 FL LAB HEMETOLOGY METHOD 05/18/2025 9:41 AM [facility] MCH 29.1 27.0 - 32.0 pcg LAB HEMETOLOGY METHOD 05/18/2025 9:41 AM [facility] MCHC 33.8 32.0 - 37.0 g/dL LAB HEMETOLOGY METHOD 05/18/2025 9:41 AM [facility] RDW 12.4 11.0 - 15.0 % LAB HEMETOLOGY METHOD 05/18/2025 9:41 AM [facility] Platelets 175 130 - 400 K/mcL LAB HEMETOLOGY METHOD 05/18/2025 9:41 AM [facility] MPV 9.8 7.0 - 11.0 FL LAB HEMETOLOGY METHOD 05/18/2025 9:41 AM [facility] NRBC 0.0 <1.0 % LAB HEMETOLOGY METHOD 05/18/2025 9:41 AM [facility] NRBC Absolute 0.00 <0.10 K/mcL LAB HEMETOLOGY METHOD 05/18/2025 9:41 AM [facility] Neutrophils Relative 62.6 % LAB HEMETOLOGY METHOD 05/18/2025 9:41 AM [facility] Lymphocytes Relative 28.2 % LAB HEMETOLOGY METHOD 05/18/2025 9:41 AM [facility] Monocytes Relative 5.2 % LAB HEMETOLOGY METHOD 05/18/2025 9:41 AM [facility] Eosinophils Relative 3.0 % LAB HEMETOLOGY METHOD 05/18/2025 9:41 AM [facility] Basophils Relative 0.7 % LAB HEMETOLOGY METHOD 05/18/2025 9:41 AM [facility] Immature Granulocytes Relative 0.3 % LAB HEMETOLOGY METHOD 05/18/2025 9:41 AM [facility] Neutrophils Absolute 4.43 1.50 - 7.00 K/mcL LAB HEMETOLOGY METHOD 05/18/2025 9:41 AM [facility] Lymphocytes Absolute 2.00 1.00 - 5.00 K/mcL LAB HEMETOLOGY METHOD 05/18/2025 9:41 AM [facility] Monocytes Absolute 0.37 0.20 - 1.00 K/mcL LAB HEMETOLOGY METHOD 05/18/2025 9:41 AM EDT [facility] Eosinophils Absolute 0.21 0.00 - 0.50 K/[facility] LAB HEMETOLOGY METHOD 05/18/2025 9:41 AM EDT [facility] Basophils Absolute 0.05 0.00 - 0.20 K/[facility] LAB HEMETOLOGY METHOD 05/18/2025 9:41 AM EDT [facility] Immature Granulocytes Absolute 0.02 0.00 - 0.03 K/[facility] LAB HEMETOLOGY METHOD 05/18/2025 9:41 AM EDT [facility] Blood Blood sample taken from central line / Unknown Existing Catheter / Unknown 05/18/2025 9:22 AM EDT 05/18/2025 9:33 AM EDT Ruth ARELLANO LAB BLOOD ORDERABLES Final Re sult [facility] [address] [place] [address], * Comprehensive metabolic panel (05/18/2025 9:22 AM EDT) Sodium 138 133 - 145 mmol/L LAB CHEMISTRY METHOD 05/18/2025 10:12 AM [facility] Potassium 4.1 3.5 - 5.5 mmol/L LAB CHEMISTRY METHOD 05/18/2025 10:12 AM [facility] Chloride 108 96 - 110 mmol/L LAB CHEMISTRY METHOD 05/18/2025 10:12 AM [facility] CO2 26 21 - 32 mmol/L LAB CHEMISTRY METHOD 05/18/2025 10:12 AM [facility] Anion Gap 4 3 - 11 LAB CHEMISTRY METHOD 05/18/2025 10:12 AM [facility] Glucose 91 70 - 100 mg/dL LAB CHEMISTRY METHOD 05/18/2025 10:12 AM [facility] BUN 17 5 - 25 mg/dL LAB CHEMISTRY METHOD 05/18/2025 10:12 AM [facility] Creatinine 0.84 0.50 - 1.10 mg/dL LAB CHEMISTRY METHOD 05/18/2025 10:12 AM [facility] eGFR 90 >=60 mL/min/1. 73m2 LAB CHEMISTRY METHOD 05/18/2025 10:12 AM [facility] Comment:Calculation based on the Chronic Kidney Disease Epidemiology Collaboration (CKD-EPI) equation refit without adjustment for race. BUN/Creatinine Ratio 20.2 LAB CHEMISTRY METHOD 05/18/2025 10:12 AM [facility] Calcium 8.7 8.5 - 10.5 mg/dL LAB CHEMISTRY METHOD 05/18/2025 10:12 AM [facility] AST (SGOT) 15 10 - 42 unit/L LAB CHEMISTRY METHOD 05/18/2025 10:12 AM [facility] ALT (SGPT) 14 10 - 60 unit/L LAB CHEMISTRY METHOD 05/18/2025 10:12 AM [facility] Alkaline Phosphatase 81 42 - 121 unit/L LAB CHEMISTRY METHOD 05/18/2025 10:12 AM [facility] Total Protein 6.3 6.0 - 8.0 g/dL LAB CHEMISTRY METHOD 05/18/2025 10:12 AM [facility] Albumin 3.4 3.2 - 5.0 g/dL LAB CHEMISTRY METHOD 05/18/2025 10:12 AM [facility] Total Bilirubin 0.3 0.0 - 1.4 mg/dL LAB CHEMISTRY METHOD 05/18/2025 10:12 AM [facility] Blood Blood sample taken from central line / Unknown Existing Catheter / Unknown 05/18/2025 9:22 AM EDT 05/18/2025 9:33 AM EDT Ruth ARELLANO LAB BLOOD ORDERABLES Final Re sult [facility] ([facility]) [facility] [address] [place] [address], [place] [phone] * Pap smear (02/29/2024) 02/29/2024 Narrative HISTORICAL TESTING LAB RESULTING AGENCY - 03/09/2024 11:50 AM EDT [id number] THINPREP PAP, IMAGED: ATYPICAL SQUAMOUS CELLS OF UNDETERMINED SIGNIFICANCE (ASCUS) . ABUNDANT ALMOST COMPLETELY OBSCURING ACUTE INFLAMMATORY CELLS IS PRESENT. JOSHUA SPARKS M.D. , PATHOLOGIST (CASE ELECTRONICALLY SIGNED 03 09 2024) RESULT OF APTIMA HIGH RISK HPV ASSAY: HIGH RISK HPV: NEGATIVE (SEROTYPES 16,18,31,33,35,39,45,51,52,56,58,59,66,68) COMPLETED ON 2024-03-02 ADEQUACY: SATISFACTORY ENDOCERVICAL/TRANSFORMATION ZONE COMPONENT PRESENT. SOURCE: THINPREP PAP HPV ANY DX: REFLEX 16 AND 18, CERVICAL, IMAGED CLINICAL INFORMATION: HPV ANY DIAGNOSIS. 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 Health Care Decision (hx) 01/18/2024 HE ALTH CARE PROXY Health Care Decision (hx) 01/18/2024 HE ALTH CARE PROXY Health Care Decision (hx) 01/18/2024 HE ALTH CARE PROXY Health Care Decision (hx) 01/18/2024 HE ALTH CARE PROXY Health Care Decision (hx) 01/18/2024 HE ALTH CARE PROXY Health Care Decision (hx) 01/18/2024 HE ALTH CARE PROXY Health Care Decision (hx) 01/18/2024 HE ALTH CARE PROXY Health Care Decision (hx) 01/18/2024 HE ALTH CARE PROXY Health Care Decision (hx) 01/18/2024 HE ALTH CARE PROXY Health Care Decision (hx) 01/18/2024 HE ALTH CARE PROXY Health Care Decision (hx) 01/18/2024 HE ALTH CARE PROXY Health Care Decision (hx) 01/18/2024 HE ALTH CARE PROXY Health Care Decision (hx) 01/18/2024 HE ALTH CARE PROXY Care Teams Medium Cycle Salesperson Relationship Specialty Start Date End Date Cosme Love MD [address] [place], [place] [address] [address] PCP - General Internal Medicine 06/03/22
--- OUTSIDE RECORDS SUMMARY | 2025-08-17 08:57 | XMS_ITS ---
Author Organization [facility] Address [address] [facility] [address] [place] [address] Phone Care Team Providers Care Plant Facilities Technician Name Role Phone Self-Referred, Patient Unavailable Unavailab Cosme Moreno MD Primary Care Provider [phone] Janette Abdalla MD, MPH Unavailable Zoe Putnam Unavailable [phone] Dariana Hopper [facility] Unavailable [phone] Aura Hsu RN Unavailable [email or web address] Problems Patient Care Coordination No te Formatting of this note migh t be different from the original. IV 3000 for PORT Dsg Problem Noted Date Diagnosed Date Malignant neoplasm of overla pping sites of left breast in female, estrogen receptor positive 06/05/2025 Current Treatment and Therapy Plans ACCESS AND FLUSH??([facility])* Plan Start Date:07/06/2025 Plan Provider:Janette Abdalla MD, [...]
== END 2025-08-16 08:28 | disposition home or self-care (01) ==
LOC: HO.HOSX 08:27
PROVIDERS: Visit Provider Physician Assistant
DX: M25.561 Pain in right knee (principal); M23.91 Unspecified internal derangement of right knee; Z96.651 Presence of right artificial knee joint
CPT/HCPCS: 73562

== ENCOUNTER 2025-08-16 13:27 | Outpatient (AMB) | payer OTHER, SELFPAY ==
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
--- OUTSIDE RECORDS SUMMARY | 2025-08-16 16:21 | XMS_ITS | Encounter Summary ---
Author Organization [facility] Address [address] [place] [address] Care Team Providers Care Soaking Pits Supervisor Name Role Phone Cosme Love MD Primary Care Provider Encounter Details Date Type Department Care Team Description 01/13/2024 Social Work [facility] Oncology Services [address] [place] [address] Breanne Solo [facility] Social History Tobacco Use Types Packs/Day Years Used Date Smoking Tobacco: Never Assessed Sex and Gender Information Value Date Recorded Sex Assigned at Female 09/28/2022 4:27 PM EST Gender Identity Not on file Sexual Orientation Not on file Job Start Date Occupation Industry Not on file Not on file Not on file documented as of this encounter Plan of Treatment Not on file documented as of this encounter Visit Diagnoses Not on filedocumented in this encounter Care Teams Soaking Pits Supervisor Relationship Specialty Start Date End Date Cosme Love MD [facility] [place] [address] PCP - General Internal Medicine 06/03/22 documented as of this encounter
--- OUTSIDE RECORDS SUMMARY | 2025-08-16 16:22 | XMS_ITS ---
Author Organization [facility] Address [address] [place] [address] Care Team Providers Care Refining Machine Operator Name Role Phone Cosme Love MD Primary Care Provider [phone] Active Problems Problem Noted Date Diagnosed Date Malignant neoplasm of overla pping sites of left breast in female, estrogen receptor positive 12/15/2023 Metastasis to bone 12/15/2023 Mass overlapping multiple quadrants of left don st 11/29/2023 Pernicious anemia 05/01/2022 Iron deficiency anemia due to chronic blood loss 05/01/2022 Current Oncology Plans [facility]N OP TRASTUZUMAB, [id number], X1 YEAR (1.5/1 HR)* Plan Start Date:05/04/2024 Plan Provider:Gustavo Forrester MD Linked Problems Mass overlapping multiple qu adrants of left breastMalignant neoplasm of overlapping sites of left breast in female, estrogen receptor positive (HCC)Metastasis to bone (HCC) Treatment Medications Current Day (Day 1 , Cycle 6 - Planned for 08/18/2024) Next Day (Day 1, Cycle 7 - Planned for 09/08/2024) albuterol (PROVENTIL)diphenhydrAMIN E (BENADRYL)EPINEPHrinefamo tidine (PF) (PEPCID)hydrocortisone (SOLU-CORTEF) IVSaline Flush 0.9 %sodium chloride (NS) 0.9 %sodium chloride 0.9% bolus (NS)TRASTUZUMAB INFUSIONtrastuzumab-qyyp (TRAZIMERA) infusion albuterol (PROVENTIL) nebulizer solution 2.5 mgdiphenhydrAMINE (BENADRYL) injection 50 mgEPINEPHrine (Anaphylaxis) (ADRENALIN) 1 mg/ml (1:1000) inj amp/vial 0.3 mgfamotidine (PEPCID) 20 mg in water for injection, sterile 5 mL Injectionhydrocortisone sodium succinate (Solu-CORTEF) injection (PF) 100 mgSaline Flush 0.9 % injection 1 Syringesodium chloride 0.9% (NS) infusionsodium chloride 0.9% bolus (NS) 500 mLtrastuzumab-qyyp (TRAZIMERA) 308 mg in sodium chloride (NS) 0.9 % 250 mL infusion albuterol (PROVENTIL) nebulizer solution 2.5 mgdiphenhydrAMINE (BENADRYL) injection 50 mgEPINEPHrine (Anaphylaxis) (ADRENALIN) 1 mg/ml (1:1000) inj amp/vial 0.3 mgfamotidine (PEPCID) 20 mg in water for injection, sterile 5 mL Injectionhydrocortisone sodium succinate (Solu-CORTEF) injection (PF) 100 mgSaline Flush 0.9 % injection 1 Syringesodium chloride 0.9% (NS) infusionsodium chloride 0.9% bolus (NS) 500 mLtrastuzumab-qyyp (TRAZIMERA) 308 mg in sodium chloride (NS) 0.9 % 250 mL infusion Past Plans ONCOLOGY TREATMENT Plan Name Start Date Discontinue Date Treatment Medications Discontinue Reason Plan Provider Cycles WEEKLY PACLITAXEL x 12 + (TRASTUZUMAB + PERTUZUMAB every 3 weeks x 4 , FOLLOWED BY TRASTUZUMAB + PERTUZUMAB X1 YEAR 4 05/04/2024 albuterol (PROVENTIL)dexamethaso ne (DECADRON)dexamethason e sod phosphate PF (DECADRON)diphenhydrAM INE (BENADRYL)EPINEPHrinef amotidine (PEPCID)famotidine (PF) (PEPCID)hydrocortisone (SOLU-CORTEF) IVmeperidine (DEMEROL) 25 MG/MLmethylPREDNISolon e sodium succinate (SOLU-Medrol)PACLitaxe l (TAXOL)PACLitaxel (TAXOL) chemo infusionpertuzumab (PERJETA) IVPBprochlorperazine (COMPAZINE)Saline Flush 0.9 %sodium chloride (NS) 0.9 %sodium chloride 0.9% bolus (NS)trastuzumab-qyyp (TRAZIMERA) infusionZZ EXTEMPORANEOUS TEMPLATE Therapy Complete Gustavo Forrester MD 5 of 16 cycles started Radiation Treatments * No radiation treatments are documented for this patient in [facility]. Treatments may have been administered in another system.
--- OUTSIDE RECORDS SUMMARY | 2025-08-16 16:22 | XMS_ITS | Encounter Summary ---
Author Organization [facility] Address [address] [facility] [address] [place] [address] Phone Care Team Providers Care Italian Lecturer Name Role Phone Self-Referred, Patient Unavailable Unavailab Cosme Moreno MD Primary Care Provider [phone] Janette Abdalla MD, MPH Unavailable [phone] Zoe Putnam Unavailable [phone] Dariana Hopper [facility] Unavailable [phone] Aura Hsu RN Unavailable [email or web address] Encounter Details Date Type Department Care Team (Late st Contact Info) Description 06/15/2025 Procedure Pass [facility] Internist [facility] [address] [facility] [address] [facility] [place] [address] Social History Tobacco Use Types Packs/Day Years Used Date Smoking Tobacco: Never Assessed Child or Family Care Answer Date Record ed Do you have problems with on e of the following making it difficult for you to work, study, or receive health care? Childcare 06/04/2025 Education Answer Date Recorded Are you interested in help w ith more adult education (for example, completing high school, GED, job training, learning the Khmer language, technical skills, or developing parenting skills)? No 06/04/2025 Are you concerned about learning? Not on file 06/04/2025 No 06/04/2025 Yes 06/04/2025 Food Answer Date Recorded Within the past 6 months we worried whether our food would run out before we got money to buy more. Often True 025 Within the past 6 months the food we bought just didn't last and we didn't have enough money to get more. Sometimes True 05/12 Residential Stability Answer Date Recor ded What is your housing situation today? I have cornell gregory 06/04/2025 How many times have you move d in the past 12 months? Zero (I did not move) 06/04/2025 Paying for Meds Answer Date Recorded Do you have trouble paying for medicines? No 06/04/2025 Paying Utility Bills Answer Date Record ed Do you have trouble paying your heating or elect ricity bill? No 06/04/2025 Transportation Answer Date Recorded Has the lack of transportati on kept you from medical appointments or from getting medications? No 06/04/2025 Unemployment Answer Date Recorded Are you currently unemployed or working on a part-time or temporary basis, and looking for work? Yes 06/04/2025 Digital Access Answer Date Recorded No 05/21/2025 No 05/21/2025 Reliable internet access at home? Not on file 05/21/2025 Device with a working camera? Not on file Intimate Partner Violence Answer Date R ecorded Are you denied basic needs s uch as food, clothing, or medical care? Deferred 06/15/2025 In the past 12 months have y ou been in a relationship with a person who hurts, threatens, or tries to control you? No 06/15/2025 Are you denied basic needs s uch as food, clothing, or medical care? Deferred 06/15/2025 In the past 12 months have y ou been in a relationship with a person who hurts, threatens, or tries to control you? No 06/15/2025 Comments Unknown Sex and Gender Information Value Date Recorded Sex Assigned at Female 05/18/2025 11:32 AM EDT Legal Sex Female 10:22 AM EDT Gender Identity Female 05/18/2025 11:32 AM EDT Sexual Orientation Straight 05/18/2025 11 :32 AM EDT documented as of this encounter Plan of Treatment Upcoming Encounters Date Type Department Care Team (Late st Contact Info) Description 08/17/2025 10:10 AM EST Blood Draw Laboratory Services, [facility] [address] [address] Janette Abdalla MD, MPH [address] [place] [phone] [email or web address] 08/17/2025 11:00 AM EST Office Visit [facility] for [facility], Nida Keyes [facility], [facility] [address] [address] Nini Herrera CNP [address] [place] [phone] [email or web address] 08/17/2025 12:00 PM EST Infusion Infusion Therapy Services [facility], [facility] [address] [address] Janette Abdalla MD, MPH [address] [place] [phone] [email or web address] Aura Hsu, DEWAYNE [address] [place] [phone] [email or web address] 09/05/2025 10:10 AM EST Blood Draw Laboratory Services, [address] [place] [address] Janette Abdalla MD, MPH [address] [place] [phone] [email or web address] 09/05/2025 11:00 AM EST Office Visit [facility] for Breast [facility]cology, [facility], [address] [place] [address] Janette Abdalla MD, MPH [address] [place] [phone] [email or web address] 09/05/2025 1:00 PM EST Infusion Infusion Therapy Services [facility] [address] [place] [address] Janette Abdalla MD, MPH [address] [place] [phone] [email or web address] Marianne Smith RN [address] [place] [phone] [email or web address] 09/07/2025 11:00 AM EST Infusion Infusion Therapy Services [facility] [address] [address] Janette Abdalla MD, MPH [address] [place] [phone] [email or web address] Aura Hsu RN [address] [place] [phone] [email or web address] documented as of this encounter Visit Diagnoses Not on filedocumented in this encounter Care Teams Italian Lecturer Relationship Specialty Start Date End Date Cosme Love MD [address] [place] [address] PCP - General Internal Medicine 05/15/25 Self-Referred, Patient 05/15/25 Janette Abdalla MD, MPH [address] [place] [address] [facility] [address] [place] [address] [email or web address] Medical [email or web address] 05/21/25 Zoe Putnam [address] [place] [phone] [email or web address] Discovery Guide 06/07/25 Dariana Hopper LICSW [address] [place] [address] [email or web address] Quality Control Systems Manager Oncology 06/19/25 Aura Hsu, RN [address] [place] [address] [email or web address] Primary Infusion Nurse 06/15/25 documented as of this encounter Additional Source Comments The information contained in this document represents components of the legal health record. It is not the complete legal health record.[facility]
--- OUTSIDE RECORDS SUMMARY | 2025-08-16 16:22 | XMS_ITS | Encounter Summary ---
Author Organization [facility] Address [address] [place] [address] Care Team Providers Care Air Pollution Engineer Name Role Phone Cosme Love MD Primary Care Provider [phone] Encounter Details Date Type Department Care Team Description 04/21/2024 Social Work [facility] Oncology Services [address] [place] [address] Breanne Solo [facility] Social History Tobacco Use Types Packs/Day Years [...] on filedocumented in this encounter Care Teams Air Pollution Engineer Relationship Specialty Start Date End Date Cosme Love MD [facility] [place] [address] PCP - General Internal Medicine 06/03/22 documented as of this encounter
--- OUTSIDE RECORDS SUMMARY | 2025-08-16 16:22 | XMS_ITS | Clinical Summary ---
Author Organization [facility] Address [email or web address] [facility] [address] [place] [phone] Phone Care Team Providers Care Valve Lapper Name Role Phone Self-Referred, Patient Unavailable Unavailab Cosme Moreno MD Primary Care Provider [phone] Janette Abdalla MD, MPH Unavailable [phone] Zoe Putnam Unavailable [phone] Dariana Hopper [facility] Unavailable [phone] Aura Hsu RN Unavailable Aura_[email or web address] Medications loperamide (IMODIUM) 2 mg capsule Take 1 capsule (2 mg total) by mouth 4 (four) times a day as needed for diarrhea. 100 capsule 3 5 Active Additional Information Patient not taking.Reported on 06/15/2025 dextroamphetami ne-amphetamine (ADDERALL XR) 20 MG 24 hr capsule Take 20 mg by mouth every morning. 5 Active ferrous sulfate, dried 160 mg (50 mg iron) TbER Take 160 mg by mouth daily. 4 Active hydrOXYzine (ATARAX) 25 MG tablet Take 25 mg by mouth every 8 (eight) hours as needed. 4 Active sertraline (ZOLOFT) 50 MG tablet Take 50 mg by mouth daily. 5 Active ibuprofen (ADVIL,MOTRIN) 600 MG tablet Take 1 tablet (600 mg total) by mouth every 8 (eight) hours as needed for pain (specific location in comments). 30 tablet 5 Active baclofen (LIORESAL) 10 MG tablet TAKE 1 TABLET (10 MG TOTAL) BY MOUTH 2 (TWO) TIMES A DAY NEEDED FOR SPASM. 60 tablet 3 5 Active ondansetron (ZOFRAN) 4 MG tablet Take 2 tablets (8 mg total) by mouth every 8 (eight) hours as needed for nausea. 60 tablet 5 Active prochlorperazin e (COMPAZINE) 10 MG tablet Take 1 tablet (10 mg total) by mouth every 6 (six) hours as needed (nausea). 50 tablet 5 5 Active lidocaine-prilo mitul (EMLA) cream Apply topically as needed (to port site prior to labs). Apply dollop sized amount to port site 1 hour prior to labs, cover with bandaid 30 g 1 5 Active Active Problems Patient Care Coordination No te Formatting of this note migh t be different from the original. IV 3000 for PORT Dsg Problem Noted Date Diagnosed Date Malignant neoplasm of overla pping sites of left breast in female, estrogen receptor positive 06/05/2025 Encounters Date Type Department Care Team Description 07/31/2025 Orders Only Infusion Therapy Services [facility] at [address] [address] Janette Abdalla MD, MPH Malignant neoplasm of overlapping sites of left breast in female, estrogen receptor positive (Primary Dx) 07/27/2025 2:00 PM EDT Infusion Infusion Therapy Services [facility] at [address] [address] Janette Abdalla MD, MPH Aura Hsu RN Malignant neoplasm of overlapping sites of left breast in female, estrogen receptor positive (Primary Dx) 07/27/2025 1:00 PM EDT Office Visit [facility], [facility] at [address] [phone] Nini Herrera CNP Schlam Camhi, Ilana M, MD, MPH Examination prior to chemotherapy (Primary Dx); Malignant neoplasm of female breast, unspecified estrogen receptor status, unspecified laterality, unspecified site of breast 07/27/2025 9:23 AM EDT - 07/27/2025 11:59 PM EDT Hospital Encounter [facility] [address] [facility] [address] [place] [address] Nini Herrera CNP Discharge Disposition: Home or Self Care 07/27/2025 Documentation [facility], [facility], [facility] at [address] [address] Maranda Torres RN 07/12/2025 Orders Only [facility], [facility], [facility] at [address] [address] Nini Herrera CNP Examination prior to chemotherapy (Primary Dx) 07/12/2025 Orders Only [facility], [facility], [address] [address] Nini Herrera CNP 07/10/2025 Refill [facility], [facility], [facility] [address], 9th [place] [address] Vijaya Dominique DNP Med Change Request 07/09/2025 Orders Only [facility], [facility], [address] [address] Nini Herrera CNP Examination prior to chemotherapy (Primary Dx) 07/06/2025 12:30 PM EDT Infusion Infusion Therapy Services [facility], [facility] at [address] [address] Janette Abdalla MD, MPH Nivia Adames, RN Malignant neoplasm of overlapping sites of left breast in female, estrogen receptor positive (Primary Dx) 07/06/2025 11:30 AM EDT Office Visit [facility], [facility], [facility] at [address] [address] Nini Herrera, MARLEE Malignant neoplasm of female breast, unspecified estrogen receptor status, unspecified laterality, unspecified site of breast (Primary Dx) 07/05/2025 Orders Only [facility], [facility], [facility] [address] [facility], [address] [place] [address] Janette Abdalla MD, MPH Malignant neoplasm of female breast, unspecified estrogen receptor status, unspecified laterality, unspecified site of breast (Primary Dx) 06/26/2025 Orders Only [facility], [facility], [facility] [address] [facility], [address] [place] [address] Janette Abdalla MD, MPH Malignant neoplasm of overlapping sites of left breast in female, estrogen receptor positive (Primary Dx); Examination prior to chemotherapy 06/25/2025 Social Work Social Work Department, [facility] at [address] [address] Dariana Hopper, ACCOUNT SUPPORT MANAGER 06/25/2025 Orders Only [facility], [facility], [facility] [address] [facility], [address] [place] [address] Mary Villagran, DEWAYNE Malignant neoplasm of overlapping sites of left breast in female, estrogen receptor positive (Primary Dx) 06/21/2025 Orders Only [place] [facility], [facility], [facility] at [address] [address] Janette Abdalla MD, MPH Malignant neoplasm of overlapping sites of left breast in female, estrogen receptor positive (Primary Dx) 06/21/2025 Telephone [facility], [facility], [address], [address] [place] [address] Janette Abdalla MD, MPH 06/21/2025 Telephone [facility], [facility], [facility] [address] [facility], [address] [place] [address] Olivia Alcaraz, RN Symptom Management 06/18/2025 Orders Only [facility], [facility], [facility] [address] [facility], [address] [place] [address] Vijaya Dominique DNP 06/18/2025 Telephone [facility], [facility], [address], [address] [place] [address] Alyce Sutherland RN 06/15/2025 12:00 PM EDT Infusion Infusion Therapy Services [facility] at [address] [address] Janette Abdalla MD, MPH Aura Hsu RN Malignant neoplasm of overlapping sites of left breast in female, estrogen receptor positive (Primary Dx) 06/15/2025 11:00 AM EDT Office Visit [facility], [facility], [facility] at [address] [address] Janette Abdalla MD, MPH Nini Herrera, HEEL ROOM SUPERVISOR Examination prior to chemotherapy (Primary Dx); Malignant neoplasm of overlapping sites of left breast in female, estrogen receptor positive 06/15/2025 Procedure Pass [facility] [address] [facility] [address] [place] [address] 06/09/2025 Orders Only [facility], [facility], [facility] [address] [facility], 9th [place] [address] Janette Abdalla MD, MPH Malignant neoplasm of overlapping sites of left breast in female, estrogen receptor positive (Primary Dx) 06/07/2025 Documentation [facility], [facility], [facility] [address] [facility], [address] [place] [address] Lane Avalos 06/07/2025 Orders Only [facility], [facility], [facility] [place] [address] 4th [place] [address] Nini Herrera CNP 06/07/2025 Telephone [facility], [facility], [facility] [address] [facility], [address] [place] [address] Rose Vines RN Chemo Teaching 06/05/2025 1:00 PM EDT Office Visit [facility], [facility], [facility] [address] [facility], 9th [place] [address] Janette Abdalla MD, MPH Malignant neoplasm of overlapping sites of left breast in female, estrogen receptor positive (Primary Dx) 06/05/2025 Documentation [facility], [facility], [facility] [address] [facility], 9th [place] [address] Janette Abdalla MD, MPH 06/05/2025 Telephone [facility], [facility], [facility] [address] [facility], [address] [place] [address] Alyce Sutherland RN 06/04/2025 Documentation [facility], [facility], [facility] [address] [facility], [address] [place] [address] [address] Avalos 05/28/2025 Ancillary Orders [facility] IMG OUTSIDE IMG [address] [place] [address] Janette Abdalla MD, MPH 05/28/2025 Ancillary Orders [facility] IM[facility] OUTSIDE IMG [address] [place] [address] Janette Abdalla MD, MPH 05/28/2025 Ancillary Orders [facility] IMG OUTSIDE IMG [address] [place] [address] Janette Abdalla MD, MPH 05/28/2025 Ancillary Orders [facility] IMG OUTSIDE IMG [address] [place] [address] Janette Abdalla MD, MPH 05/28/2025 Ancillary Orders [facility] IMG OUTSIDE IMG [address] [place] [address] Janette Abdalla MD, MPH 05/28/2025 Ancillary Orders [facility] IMG OUTSIDE IMG [address] [place] [address] Janette Abdalla MD, MPH 05/28/2025 Ancillary Orders [facility] IMG OUTSIDE IMG [address] [place] [address] Janette Abdalla MD, MPH 05/28/2025 Ancillary Orders [facility] IMG OUTSIDE IMG [address] [place] [address] Janette Abdalla MD, MPH 05/28/2025 Ancillary Orders [facility] IMG OUTSIDE IMG [address] [place] [address] Janette Abdalla MD, MPH 05/28/2025 Ancillary Orders [facility] OUTSIDE IMG [address] [place] [address] Janette Abdalla MD, MPH 05/28/2025 Ancillary Orders [facility] IMG OUTSIDE IMG [address] [place] [address] Janette Abdalla MD, MPH 05/28/2025 Ancillary Orders [facility] IMG OUTSIDE IMG [address] [place] [address] Janette Abdalla MD, MPH 05/28/2025 Ancillary Orders [facility] IMG OUTSIDE IMG [address] [place] [address] Janette Abdalla MD, MPH 05/28/2025 Ancillary Orders [facility] IMG OUTSIDE IMG [address] [place] [phone] Janette Abdalla MD, MPH 05/28/2025 Ancillary Orders [facility] IM[facility] OUTSIDE IMG [address] [place] [address] Janette Abdalla MD, MPH 05/28/2025 Ancillary Orders [facility] IM[facility] OUTSIDE IMG [address] [place] [address] Janette Abdalla MD, MPH 05/28/2025 Ancillary Orders [facility] IMG OUTSIDE IMG [address] [place] [address] Janette Abdalla MD, MPH 05/28/2025 Ancillary Orders [facility] IMG OUTSIDE IMG [address] [place] [address] Janette Abdalla MD, MPH 05/28/2025 Ancillary Orders [facility] OUTSIDE IMG [address] [place] [address] Janette Abdalla MD, MPH 05/28/2025 Ancillary Orders [facility] IMG OUTSIDE IMG [address] [place] [address] Janette Abdalla MD, MPH 05/25/2025 9:22 AM EDT - 05/25/2025 11:59 PM EDT Hospital Encounter [facility], [facility] [address] [place] [address] Discharge Disposition: Home or Self Care 05/22/2025 Ancillary Procedure DF IMG OUTSIDE IMG [address] [place] [address] Janette Abdalla MD, MPH 05/22/2025 Orders Only [facility], [facility] [place] [facility], [facility] [place] [address] [facility], 9th [place] [address] Jeanne Romero MA Malignant neoplasm of female breast, unspecified estrogen receptor status, unspecified laterality, unspecified site of breast (Primary Dx) from Last 3 Months Social History Tobacco Use Types Packs/Day Years [...] high school, GED, job training, learning the Spanish language, technical skills, or developing parenting skills)? [...] your housing situation today? I have cornell sing 06/04/2025 How many times have you move [...] Orientation Straight 05/18/2025 11 :32 AM EDT Last Filed Vital Signs Vital Sign Reading Time Taken Comments Blood Pressure 111/68 07/27/2025 11:50 AM EDT Pulse 103 07/27/2025 11:50 AM EDT Temperature 36.9 C (98.4 F) 07/27/2025 11:50 AM EDT Respiratory Rate 18 07/27/2025 11:50 AM EDT Oxygen Saturation 98% 07/27/2025 11:50 AM EDT Inhaled Oxygen Concentration - - Weight 49 kg (108 lb 0.4 oz) 07/27/2025 11:50 AM EDT Height 161.5 cm (5' 3.58 ) 06/15/2025 11:38 AM E DT Body Mass Index 18.79 06/15/2025 11:38 AM EDT Plan of Treatment Upcoming Encounters Date Type Department Care Team (Late st Contact Info) Description 08/17/2025 10:10 AM EST Blood Draw Laboratory Services, [facility] at [address] [address] Janette Abdalla MD, MPH [address] [place] [phone] [email or web address] 08/17/2025 11:00 AM EST Office Visit [facility], [facility] [place] [facility], [facility] at [address] [address] Nini Herrera CNP [address] [place] [address] [email or web address] 08/17/2025 12:00 PM EST Infusion Infusion Therapy Services South, [facility] at [address] [address] Janette Abdalla MD, MPH [address] [place] [address] [email or web address] Aura Hsu, RN [address] [place] [address] [email or web address] 09/05/2025 10:10 AM EST Blood Draw Laboratory Services, [address], [address] [place] [address] Janette Abdalla MD, MPH [address] [place] [address] [email or web address] 09/05/2025 11:00 AM EST Office Visit [facility], [facility], [address], [address] [place] [address] Janette Abdalla MD, MPH [address] [place] [address] [email or web address] 09/05/2025 1:00 PM EST Infusion Infusion Therapy Services [address], [address] [place] [address] Janette Abdalla MD, MPH [address] [place] [address] [email or web address] Marianne Smith RN [address] [place] [phone] [email or web address] 09/07/2025 11:00 AM EST Infusion Infusion Therapy Services [facility] [place] [address] [address] Janette Abdalla MD, MPH [address] [place] [phone] [email or web address] Aura Hsu RN [address] [place] [phone] [email or web address] Health Maintenance Due Date Last Done Comments Adult Td,Tdap Booster 1984 DEPRESSION SCREENING 1996 SMOKING Hx and SMOKELESS TOB ACCO SCREENING 1997 HEPATITIS C SCREENING 2002 HIV ONE-TIME SCREENING (18-6 5 YEARS) 2002 PNEUMOCOCCAL VACCINES (0-49 years) (1 of 2 - PCV) 2003 INFLUENZA VACCINE (#1) 2025 COVID-19 VACCINE (1 - 2024-2 6 season) 2025 MAMMOGRAM 12/01/2025 12/01/2023 PAP SMEAR 02/28/2027 02/29/2024 HEPATITIS A VACCINES Aged Out No long er eligible based on patient's age to complete this topic HIB VACCINES Aged Out No longer eligi ble based on patient's age to complete this topic MENINGOCOCCAL VACCINES (ACWY) Aged Out No longer eligible based on patient's age to complete this topic MENINGOCOCCAL VACCINES (B) Aged Out N o longer eligible based on patient's age to complete this topic Medical Devices Not on file Procedures Procedure Name Priority Date/Time Associated Diagnosis Comments CA-15-3 Routine 07/27/2025 11:41 AM EDT Malignant neoplasm of overlapping sites of left breast in female, estrogen receptor positive COMPREHENSIVE METABOLIC PANEL (CMP) Routine 07/27/2025 11:41 AM EDT Malignant neoplasm of overlapping sites of left breast in female, estrogen receptor positive HC BLOOD COUNT COMPLETE AUTO&AUTO DIFRNTL WBC Routine 07/27/2025 11:41 AM EDT Malignant neoplasm of overlapping sites of left breast in female, estrogen receptor positive CARCINOEMBRYONIC ANTIGEN (CEA) Routine 07/27/2025 11:41 AM EDT Malignant neoplasm of overlapping sites of left breast in female, estrogen receptor positive CT CHEST (HIGH RESOLUTION) WITHOUT CONTRAST Routine 07/27/2025 9:37 AM EDT Malignant neoplasm of overlapping sites of left breast in female, estrogen receptor positive MISCELLANEOUS TEST Routine 07/06/2025 10 :19 AM EDT Malignant neoplasm of female breast, unspecified estrogen receptor status, unspecified laterality, unspecified site of breast FERRITIN Routine 07/06/2025 10:19 AM EDT Malignant neoplasm of overlapping sites of left breast in female, estrogen receptor positive Examination prior to chemotherapy CA-15-3 Routine 07/06/2025 10:19 AM EDT Malignant neoplasm of overlapping sites of left breast in female, estrogen receptor positive COMPREHENSIVE METABOLIC PANEL (CMP) Routine 07/06/2025 10:19 AM EDT Malignant neoplasm of overlapping sites of left breast in female, estrogen receptor positive HC BLOOD COUNT COMPLETE AUTO&AUTO DIFRNTL WBC Routine 07/06/2025 10:19 AM EDT Malignant neoplasm of overlapping sites of left breast in female, estrogen receptor positive CARCINOEMBRYONIC ANTIGEN (CEA) Routine 07/06/2025 10:19 AM EDT Malignant neoplasm of overlapping sites of left breast in female, estrogen receptor positive IRON AND IRON BINDING CAPACITY Routine 07/06/2025 10:09 AM EDT COMPREHENSIVE METABOLIC PANEL (CMP) Routine 06/15/2025 11:23 AM EDT Malignant neoplasm of overlapping sites of left breast in female, estrogen receptor positive HC BLOOD COUNT COMPLETE AUTO&AUTO DIFRNTL WBC Routine 06/15/2025 11:23 AM EDT Malignant neoplasm of overlapping sites of left breast in female, estrogen receptor positive MRI BRAIN OUTSIDE (NO INTERPRETATION) Routine 05/22/2025 12:00 AM EDT BI MAMMOGRAM OUTSIDE (NO INTERPRETATION) Routine 12/01/2023 12:10 AM EST from Last 3 Months or Most Recently Relevant to Health Maintenance Results * (ABNORMAL) Comprehensive metabolic panel (07/27/2025 11:41 AM EDT) Only the most recent of3 resultswithin the time period is included. SODIUM 137 136 - 145 mmol/L [facility] POTASSIUM 4.6 3.4 - 5.1 mmol/L [facility] CHLORIDE 104 98 - 107 mmol/L [facility] CO2 23 22 - 31 mmol/L [facility] BUN 10 6 - 23 mg/dL [facility] CREATININE 0.81 0.50 - 1.20 mg/dL [facility] GLUCOSE 121(H) 70 - 100 mg/dL [facility] ALBUMIN 3.9 3.5 - 5.2 g/dL [facility] TOTAL PROTEIN 6.9 6.4 - 8.3 g/dL [facility] CALCIUM 8.9 8.8 - 10.7 mg/dL [facility] ALKALINE PHOSPHATASE 110(H) 35 - 104 U/L [facility] TOTAL BILIRUBIN 0.5 0.2 - 1.2 mg/dL [facility] AST 16 <33 U/L [facility] ALT 13 <34 U/L [facility] GLOBULIN 3.0 2.3 - 4.2 g/dL [facility] EGFR 93 >59 mL/min/1.7 3m2 [facility] Comment:Estimated glomerular filtration rate calculated using the CKD-EPI refit equation. ANION GAP 10 7 - 17 mmol/L [facility] Blood 07/27/2025 11:4 1 AM EDT 07/27/2025 11:42 AM EDT Janette Ortiz MD, MPH LAB BLOOD BKR ORDER BERTRAM Final Result [facility] [address] [place] [id number], [facility] * CA-15-3 (07/27/2025 11:41 AM EDT) Only the most recent of2 resultswithin the time period is included. CANCER AG 15-3 19 0 - 25 U/mL [facility] Blood 07/27/2025 11:4 1 AM EDT 07/27/2025 11:42 AM EDT us Janette Ortiz MD, MPH LAB BLOOD BKR ORDER BERTRAM Final Result [facility] [address] [place] [address], [facility] * (ABNORMAL) CBC and differential (07/27/2025 11:41 AM EDT) Only the most recent of3 resultswithin the time period is included. WBC 4.82 4.00 - 10.00 K/uL [facility] RBC 4.30 3.90 - 6.00 M/uL [facility] HGB 13.2 11.5 - 16.4 g/dL [facility] HCT 36.5 36.0 - 48.0 % [facility] PLT 226 150 - 450 K/uL [facility] MCV 84.9 80.0 - 100.0 fL [facility] MCH 30.7 27.0 - 32.0 pg [facility] MCHC 36.2(H) 32.0 - 36.0 g/dL [facility] RDW 14.1 11.5 - 14.5 % [facility] MPV 9.4 8.4 - 12.0 fL [facility] NRBC 0.00 0.00 /100 WBCs [facility] ABSOLUTE NRBC 0.00 0 K/uL [facility] DIFF METHOD Auto [facility] NEUTS 43.4(L) 48.0 - 76.0 % [facility] LYMPHS 46.3(H) 18.0 - 41.0 % [facility] MONOS 5.8 4.0 - 11.0 % [facility] EOS 3.3 0.0 - 5.0 % [facility] BASOS 1.0 0.00 - 1.50 % [facility] % IMMATURE GRANS 0.2 0.00 - 1.00 % [facility] ABSOLUTE NEUTS 2.09 1.92 - 7.60 K/uL [facility] ABSOLUTE LYMPHS 2.23 0.72 - 4.10 K/uL [facility] ABSOLUTE MONOS 0.28 0.16 - 1.10 K/uL [facility] ABSOLUTE EOS 0.16 0.00 - 0.50 K/uL [facility] ABSOLUTE BASOS 0.05 0.00 - 0.15 K/uL [facility] ABS IMMATURE GRANS 0.01 0.00 - 0.10 K/uL [facility] Blood 07/27/2025 11:4 1 AM EDT 07/27/2025 11:42 AM EDT us Janette Ortiz MD, MPH LAB BLOOD BKR ORDER BERTRAM Final Result Performing Organization Address [facility] Co de Phone Number [facility] [address] * Carcinoembryonic antigen (CEA) (07/27/2025 11:41 AM EDT) Only the most recent of2 resultswithin the time period is included. [facility] CEA 1.3 0 - 3.7 ng/mL [facility] Comment: CEA REFERENCE RANGE: NON-SMOKERS: < 3.8 ng/mL SMOKERS: < 5.0 ng/mL Blood 07/27/2025 11:4 1 AM EDT 07/27/2025 11:42 AM EDT Janette Ortiz MD, MPH LAB BLOOD BKR ORDER BERTRAM Final Result Performing Organization Address [facility] de Phone Number [facility] [address] * CT CHEST (HIGH RESOLUTION) WITHOUT CONTRAST (07/27/2025 9:37 AM EDT) Anatomical Region Laterality Modality Chest Computed Tomogra phy 07/27/2025 9:58 AM EDT Impressions 07/30/2025 12:10 PM EDT 1. No evidence of interstitial lung disease. 2. Decreased size of left breast mass and left axillary lymph node, representing known primary malignancy and asmita metastasis. ATTESTATION: Wade Herman, as teaching physician have reviewed the images, if any, for this patient's exam, and if necessary, have edited the report originally created by Duran Ramirez. Narrative 07/30/2025 12:[address] CHEST (HIGH RESOLUTION) WITHOUT CONTRAST Referring clinician's provided indication for this examination in [facility]: * Acute interstitial pneumonitis; on enhertu, rule out pneumonitis TECHNIQUE: Multidetector CT of the chest was performed without intravenous contrast using tailored dose modulation techniques. Thin inspiratory, expiratory and inspiratory prone images were obtained as part of a high-resolution chest CT protocol. COMPARISON: CT CHEST OUTSIDE (NO INTERPRETATION) ; CT CHEST OUTSIDE (NO INTERPRETATION) FINDINGS: Devices/Tubes/Lines: Right internal jugular port catheter with tip in the right atrium. Lungs: Unchanged 4 mm right upper lobe groundglass nodule (4:126). No new pulmonary nodules. The airways are clear. Prone imaging shows no posterior reticulation or ground glass opacity. Expiratory imaging shows no significant air trapping. Pleura: No pleural effusion or pneumothorax. Mediastinum: No thyroid nodules. Heart size is normal. No pericardial effusion. Lymph Nodes: No enlarged supraclavicular, axillary, mediastinal, or hilar lymph nodes. Decreased size of left axillary lymph node measuring 7 mm (217), previously 10 mm. Upper Abdomen: No abnormality detected in the visualized upper abdomen. Absence of intravenous contrast limits sensitivity for detecting solid organ findings. Chest Wall: Decreased size of left breast mass measuring 2.9 x 1.3 cm (2:41), previously 4.0 x 2.7 cm. Decrease left breast skin thickening. Bones: No suspicious lytic or blastic lesions. Procedure Note Wade Palomares MD - 07/30/2025 CT CHEST (HIGH RESOLUTION) WITHOUT CONTRAST Referring clinician's provided indication for this examination in Epic: *Acute interstitial pneumonitis; on enhertu, rule out pneumonitis TECHNIQUE: Multidetector CT of the chest was performed without intravenouscontrast using tailored dose modulation techniques. Thin inspiratory,expiratory and inspiratory prone images were obtained as part of [facility]-resolution chest CT protocol. COMPARISON: CT CHEST OUTSIDE (NO INTERPRETATION) ; CT CHESTOUTSIDE (NO INTERPRETATION) FINDINGS: Devices/Tubes/Lines: Right internal jugular port catheter with tip in theright atrium. Lungs: Unchanged 4 mm right upper lobe groundglass nodule (4:126). No newpulmonary nodules. The airways are clear. Prone imaging shows no posteriorreticulation or ground glass opacity. Expiratory imaging shows nosignificant air trapping. Pleura: No pleural effusion or pneumothorax. Mediastinum: No thyroid nodules. Heart size is normal. No pericardialeffusion. Lymph Nodes: No enlarged supraclavicular, axillary, mediastinal, or hilarlymph nodes. Decreased size of left axillary lymph node measuring 7 mm(217), previously 10 mm. Upper Abdomen: No abnormality detected in the visualized upper abdomen.Absence of intravenous contrast limits sensitivity for detecting solidorgan findings. Chest Wall: Decreased size of left breast mass measuring 2.9 x 1.3 cm(2:41), previously 4.0 x 2.7 cm. Decrease left breast skin thickening. Bones: No suspicious lytic or blastic lesions. IMPRESSION: 1. No evidence of interstitial lung disease. 2. Decreased size of left breast mass and left axillary lymph node,representing known primary malignancy and asmita metastasis. ATTESTATION: I, Wade Palomares, as teaching physician have reviewed theimages, if any, for this patient's exam, and if necessary, have edited thereport originally created by Duran Ramirez. Nini Herrera [facility] CT CHEST Final Result * Miscellaneous test (07/06/2025 10:19 AM EDT) [facility] Test Information TEST SENT TO [facility] 07/06/2025 [facility] MISCELLANEOUS TEST (RESULTS) TEST CANCELLED BY PROVIDER DR. MARCELLO AUSTIN ON 07/06/2025 [facility] Resulting Agency [facility] Blood 07/06/2025 10:1 9 AM EDT 07/06/2025 11:50 AM EDT Janette Ortiz MD, MPH LAB BLOOD BKR ORDER BERTRAM Final Result Performing Organization Address [facility] Co de Phone Number [address] * Ferritin (07/06/2025 10:19 AM EDT) FERRITIN 113 13 - 150 ug/L [facility] Blood 07/06/2025 10:1 9 AM EDT 07/06/2025 10:31 AM EDT Janette Ortiz MD, MPH LAB BLOOD BKR ORDER BERTRAM Final Result Performing Organization Address [facility] Co de Phone Number [address] * (ABNORMAL) Iron and iron binding capacity (07/06/2025 10:09 AM EDT) IRON 60 37 - 145 ug/dL [facility] IRON BINDING CAPACITY 183(L) 220 - 460 ug/dL [facility] TRANSFERRIN SATURAT. 33 14 - 50 % [facility] 07/06/2025 10:0 9 AM EDT 07/06/2025 10:32 AM EDT Janette Ortiz MD, MPH LAB BLOOD BKR ORDER BERTRAM Final Result Performing Organization Address [facility] Co de Phone Number [address] * MRI Brain Outside (No Interpretation) (05/22/2025 12:00 AM EDT) Other Narrative [facility] - 05/28/2025 11:44 AM EDT This study is for PACS storage only and not for interpretation. Janette Ortiz MD, MPH IMG OUTSIDE IMAGING W/OUT INTERPRETATION Final Result Performing Organization Address [facility] de Phone Number [facility] * Mammogram Outside (No Interpretation) (12/01/2023 12:10 AM EST) Other Narrative BESSY_MITAH - 05/28/2025 11:59 AM EDT This study is for PACS storage only and not for interpretation. Janette Ortiz MD, MPH IMG OUTSIDE IMAGING W/OUT INTERPRETATION Final Result Performing Organization Address [facility] de Phone Number [facility] from Last 3 Months or Most Recently Relevant to Health Maintenance Insurance [employer] [facility] ALLANCE ACO [facility] [employer] Care Teams Valve Lapper Relationship Specialty Start Date End Date Cosme Love MD [address] [place] [id number] PCP - General Internal Medicine 05/15/25 Self-Referred, Patient 05/15/25 Janette Abdalla MD, MPH [address] [place] [address] [facility] [address] [place] [address] [email or web address] Medical Oncology 05/21/25 Zoe Putnam [address] [place] [address] [email or web address] Warrant Clerk 06/07/25 Dariana Hopper LICSW [address] [place] [address] [email or web address] Press Maintainer Oncology 06/19/25 Aura sHu, RN [address] [place] [address] [email or web address] Primary Infusion Nurse 06/15/25 Additional Source Comments The information contained in this document represents components of the legal health record. It is not the complete legal health record.[facility]
--- OUTSIDE RECORDS SUMMARY | 2025-08-16 16:22 | XMS_ITS | Clinical Summary ---
Author Organization [facility] Address [address] [place] [address] Care Team Providers Care Intervention Specialist Name Role Phone Cosme Love MD Primary Care Provider [phone] Allergies Active Allergy Reactions Criticality Noted Date Comments Gluten 05/01/2022 Wheat 05/01/2022 Medications Medication Sig Dispensed Refills Start Date End Date Status hydrOXYzine (ATARAX) 25 MG tablet Take 1 tablet (25 mg total) by mouth. 0 Active Cyanocobalamin (Vitamin B-12) [address] under the tongue. 0 Active ondansetron (ZOFRAN) 8 MG tablet Take 1 tablet (8 mg total) by mouth every 8 (eight) hours as needed for nausea. 20 tablet 3 12/15/2023 Active lidocaine-prilocaine (EMLA) cream Apply topically as needed. 30 g 2 02/01/2024 Active prochlorperazine (COMPAZINE) 10 MG tabletIndications:Ma lignant neoplasm of overlapping sites of left breast in female, estrogen receptor positive (HCC),Metastasis to bone (HCC),Mass overlapping multiple quadrants of left breast TAKE 1 TABLET (10 MG TOTAL) BY MOUTH EVERY 6 (SIX) HOURS NEEDED NAUSEA AND VOMITING. 60 tablet 1 02/10/2024 Active doxycycline monohydrate (MONODOX) 100 MG capsule 0 02/29/2024 Active metroNIDAZOLE (METROCREAM) 0.75 % cream APPLY A THIN LAYER TO FACE TWICE DAILY 0 02/28/2024 Active guaiFENesin-dextrome thorphan (ROBITUSSIN DM) 100-10 MG/5ML liquid Take 5 mL by mouth every 12 (twelve) hours. 0 Active benzonatate (TESSALON) 200 MG capsule TAKE 1 CAPSULE BY MOUTH 3 TIMES DAILY NEEDED FOR COUGH FOR UP TO 7 DAYS. 0 06/26/2024 Active Ferrous Sulfate Dried ER (Slow Iron) 160 (50 Fe) MG TBCR Take 160 mg by mouth daily. 30 tablet 5 07/28/2024 Active Active Problems Problem Noted Date Diagnosed Date Malignant neoplasm of overla pping sites of left breast in female, estrogen receptor positive 12/15/2023 Metastasis to bone 12/15/2023 Mass overlapping multiple quadrants of left don st 11/29/2023 Pernicious anemia 05/01/2022 Iron deficiency anemia due to chronic blood loss 05/01/2022 Social History Tobacco Use Types Packs/Day Years Used Date Smoking Tobacco: Never Assessed Sex and Gender Information Value Date Recorded Sex Assigned at Female 09/28/2022 4:27 PM EST Gender Identity Not on file Sexual Orientation Not on file Job Start Date Occupation Industry Not on file Not on file Not on file Last Filed Vital Signs Vital Sign Reading Time Taken Comments Blood Pressure 112/67 07/28/2024 9:58 AM EDT Pulse 75 07/28/2024 9:58 AM EDT Temperature 36.3 C (97.4 F) 07/28/2024 9:58 AM EDT Respiratory Rate 18 05/26/2024 8:00 AM EDT Oxygen Saturation 100% 07/28/2024 9:58 AM EDT Inhaled Oxygen Concentration - - Weight 52.1 kg (114 lb 12.8 oz) 07/28/2024 9:58 AM EDT Height 160 cm (5' 3 ) 07/28/2024 9:12 AM EDT Body Mass Index 20.34 07/28/2024 9:12 AM EDT Plan of Treatment Health Maintenance Due Date Last Done Comments Hepatitis B Vaccines (1 of 3 - 3-dose series) 1984 Hepatitis C Screening 1984 COVID-19 Vaccine (#1) 1989 Pneumococcal Vaccine (1 of 2 - PCV) 1990 Depression Screening 1996 Preventative Health Evaluation 2002 DTap / Tdap / Td (1 - Tdap) 2003 Cervical Cancer Screening (P ap Smear) 2005 Influenza Vaccine (#1) 2025 RSV Ped < 20 months Aged Out No longe r eligible based on patient's age to complete this topic Care Teams Intervention Specialist Relationship Specialty Start Date End Date Cosme Love MD [address] [place] [id number] PCP - General Internal Medicine 06/03/22
--- OUTSIDE RECORDS SUMMARY | 2025-08-16 16:22 | XMS_ITS | Encounter Summary ---
Author Organization [facility] Address [address] [place] [address] Care Team Providers Care Armed Guard Name Role Phone Cosme Love MD Primary Care Provider [phone] Encounter Details Date Type Department Care Team Description 07/28/2024 Social Work [facility] Oncology Services [address] [place] [address] Breanne Solo [facility] Social History Tobacco Use Types Packs/Day Years [...] on filedocumented in this encounter Care Teams Armed Guard Relationship Specialty Start Date End Date Cosme Love MD [facility] [place] [address] PCP - General Internal Medicine 06/03/22 documented as of this encounter
--- OUTSIDE RECORDS SUMMARY | 2025-08-16 16:22 | XMS_ITS ---
Author Name [facility] Organization Unknown Care Team Organization Name Specialty Phone Email Start Date End Da norbert [facility] Cosme Love Primary Care 08/18/20222023
--- OUTSIDE RECORDS SUMMARY | 2025-08-16 16:22 | XMS_ITS ---
Author Organization [facility] Address [address] [facility] [address] [place] [address] Phone Care Team Providers Care Software Engineer Advisor Name Role Phone Self-Referred, Patient Unavailable Unavailab Cosme Moreno MD Primary Care Provider [phone] Janette Abdalla MD, MPH Unavailable Zoe Putnam Unavailable [phone] Dariana Hopper [facility] Unavailable [phone] Aura Hsu RN Unavailable [email or web address] Active Problems Patient Care Coordination No te Formatting of this note migh t be different from the original. IV 3000 for PORT Dsg Problem Noted Date Diagnosed Date Malignant neoplasm of overla pping sites of left breast in female, estrogen receptor positive 06/05/2025 Current Treatment and Therapy Plans ACCESS AND FLUSH??([facility])* Plan Start Date:07/06/2025 Plan Provider:Janette Abdalla MD, MPH Linked Problems Malignant neoplasm of overla pping sites of left breast in female, estrogen receptor positive Treatment Medications No medications scheduled. Trastuzumab Deruxtecan 5.4 mg/kg* Plan Start Date:06/12/2025 Plan Provider:Janette Abdalla MD, MPH Linked Problems Malignant neoplasm of overla pping sites of left breast in female, estrogen receptor positive Treatment Medications Current Day (Day 1 , Cycle 4 - Planned for 08/17/2025) Next Day (Day 1, Cycle 5 - Planned for 09/07/2025) fam-trastuzumab deruxtecan-nxki (ENHERTU) IVPB Bag fam-trastuzumab deruxtecan-nxki (ENHERTU) 280 mg in D5W 124 mL IVPB fam-trastuzumab deruxtecan-nxki (ENHERTU) 280 mg in D5W 124 mL IVPB ZOLEDRONIC ACID (ZOMETA)* Plan Start Date:07/27/2025 Plan Provider:Nini Herrera CNP Linked Problems Malignant neoplasm of overla pping sites of left breast in female, estrogen receptor positive Treatment Medications No medications scheduled. Past Treatment and Therapy Plans No past plan information found.
== END 2025-08-16 14:17 | disposition home or self-care (01) ==
LOC: HO.HOS 13:27
PROVIDERS: Visit Provider Physician Assistant
DX: M23.91 Unspecified internal derangement of right knee (principal)
CPT/HCPCS: 99203

== ENCOUNTER → 2025-08-16 13:30 | Outpatient (BNV) | payer OTHER, SELFPAY | PROVIDERS: Visit Provider Radiology Diagnostic Ultrasound | DX: M25.561 Pain in right knee (principal) | CPT/HCPCS: 73562 ==